=== PATIENT | male | born 1950 | race Caucasian/White ===

== ENCOUNTER 2016-09-16 18:11 | Inpatient (IN) | payer MEDICARE, OTHER ==
[~2016-09-16] VITALS: Ht 167.6 cm; Wt 96.0 kg
[~2016-09-16 18:11] MED LIST: ALPR0.254 PO; ASPI-664 PO; CARV25TA79 PO; CYAN100 PO; CYAN100T PO; DOCU-144 PO; ESOM40CA PO; FER325 PO; FURO40TA4 PO; HYDR-902 PO; HYDR28.39 RC; NIFE30TA7 PO; NIT4 SL; POTA10TA97 PO; PROP40TA4 PO; SITA1TAB5 PO; SS SC; TAMS-14 PO
[2016-09-16] MEDS ORDERED: ONDANSETRON 4 MG INJ IV STA (20:04)
[2016-09-16] MEDS ORDERED: FAMOTIDINE 20 MG INJ IV STA (20:04)
[2016-09-16] MEDS ORDERED: morphine 4 MG/ML VIAL IV STA (20:04)
[2016-09-16] MEDS ORDERED: SOD CHLORIDE 0.9% 1,000 ML IV STA (20:04)
[2016-09-16] MEDS ORDERED: CARV12.579 PO (20:38)
[2016-09-16] MEDS ORDERED: POTA20TA15 PO (20:40)
[2016-09-16] MEDS ORDERED: LANT3I SC (20:41)
[2016-09-16] MEDS ORDERED: DULO30CA47 PO (20:42)
[2016-09-16] MEDS ORDERED: HYDR-3672 PO (20:42)
[2016-09-16] MEDS ORDERED: SITA1TAB5 PO (20:42)
[2016-09-16] MEDS ORDERED: ATOR10TA65 PO (20:43)
[2016-09-16] MEDS ORDERED: GABA100C14 PO (20:43)
--- NOTE | 2016-09-16 20:55 | RADRPT ---
PROCEDURE: US right upper quadrant CLINICAL INDICATION: Abdominal pain TECHNIQUE: Multiple real-time images were acquired of the patient's right upper abdomen utilizing a high resolution transducer. COMPARISON: CT abdomen 02/19/2016 FINDINGS: Liver: Nodular contour as seen previously concerning for cirrhosis with increased echogenicity and size. There is no evidence of mass or ductal dilatation. Normal directional blood flow is seen with in the patent main portal vein. The maximum dimension estimated at 20.7 cm consistent with hepatomeg rosette . Gallbladder: Normal. No wall thickening. No sonographic Thomas's sign is reported. Common bile duct: Normal; 5.6 mm. There is no evidence for choledocholithiasis. Right Kidney: Normal; maximum length measured at approximately 11.1 cm. Pancreas: Visualized portions are normal. The tail is partially obscured by bowel gas. RPTAT:HJJR IMPRESSION: 1. Nodular contour to the liver consistent with cirrhosis with hepatomegaly, findings stable compar ed to the CT of 02/19/2016. 2. Unremarkable gallbladder. Physician Musa Date Time Electronically viewed and signed by Physician Musa on 09/16/2016 20:54 JR/
[2016-09-16 21:04] LABS: ADD SCAN DIFF NO
[2016-09-16 21:07] LABS: BASOPHILS % 0.3 % (0.0-2.0); EOSINOPHILS # 0.2 10^3/ul (0.0-0.5); EOSINOPHILS % 2.9 % (0.0-7.0); HEMATOCRIT 37.3 % (42.0-52.0); HEMOGLOBIN 12.8 g/dl (14.0-18.0); LYMPHOCYTES # 2.4 10^3/ul (0.8-2.9); LYMPHOCYTES % 38.8 % (15.0-51.0); MEAN CORPUSCULAR HEMOGLOBIN 28.1 pg (29.0-33.0); MEAN CORPUSCULAR HGB CONC 34.3 g/dl (32.0-37.0); MEAN CORPUSCULAR VOLUME 81.8 fl (82.0-101.0); MEAN PLATELET VOLUME 10.8 fl (7.4-10.4); MONOCYTE # 0.5 10^3/ul (0.3-0.9); MONOCYTES % 7.3 % (0.0-11.0); NEUTROPHIL # 3.1 10^3/ul (1.6-7.5); NEUTROPHILS % 50.4 % (39.0-77.0); PLATELET COUNT 149 10^3/UL (140-415); RED BLOOD COUNT 4.56 10^6/ul (4.70-6.10); RED CELL DISTRIBUTION WIDTH 13.5 % (11.5-14.5); WHITE BLOOD COUNT 6.1 10^3/ul (4.8-10.8)
[2016-09-16 21:18] LABS: ALBUMIN 4.2 g/dl (3.3-4.9)
[2016-09-16 21:19] LABS: ADD UMIC YES; URINE BILIRUBIN (Dip) NEGATIVE (NEGATIVE); URINE BLOOD (Dip) NEGATIVE (NEGATIVE); URINE COLOR LT. YELLOW (YELLOW); URINE KETONES (Dip) NEGATIVE (NEGATIVE); URINE LEUKOCYTE ESTERASE (Dip) NEGATIVE (NEGATIVE); URINE NITRITE (Dip) NEGATIVE (NEGATIVE); URINE TOTAL PROTEIN (Dip) 2+ (NEGATIVE); URINE UROBILINOGEN (Dip) 0.2 E.U./dL (0.1-1.0)
[2016-09-16 21:20] LABS: ALBUMIN/GLOBULIN RATIO 1.02; BILIRUBIN,INDIRECT 0.6 mg/dl (0-1.1); BILIRUBIN,TOTAL 0.6 mg/dl (0.2-1.3); CREATININE 1.14 mg/dl (0.61-1.24); POTASSIUM 2.6 mmol/L (3.5-5.1); TOTAL PROTEIN 8.3 g/dl (6.1-8.1)
[2016-09-16 21:21] LABS: CALCIUM 9.1 mg/dl (8.4-10.2)
[2016-09-16] MEDS ORDERED: POTASSIUM CHLORIDE (SR) 20 MEQ TAB PO ONE (21:29)
[2016-09-16 21:32] LABS: TROPONIN-I 0.012 ng/ml (0.00-0.12)
[2016-09-16 21:37] LABS: SQUAMOUS EPITHELIAL CELL,UR RARE; URINE RBCS NONE SEEN /HPF (0)
[2016-09-16] MEDS ORDERED: ACETAMINOPHEN 325 MG TAB PO ONE (22:00)
--- NOTE | 2016-09-16 22:58 | RADRPT ---
PROCEDURE: CT abdomen and pelvis without contrast. CLINICAL INDICATION: Abdominal pain. TECHNIQUE: CT scan of the abdomen and pelvis without contrast was performed on a multislice CT [facility] utilizing axial imaging from the lung bases through the pubis symphysis. The patient was scann ed without intravenous contrast. Sagittal and coronal reformatted images were made. The CTDIvol is 20.72 mGy and the DLP is 1226.56 mGycm. One of the following 3 dose reduction techniques were used during this CT examination: automated exp osure control; adjustment of the mA and /or kV according to patient size; or use of iterative recons truciton technique. COMPARISON: CT abdomen pelvis 02/19/2016 and MRI dated 02/23/2016 FINDINGS: The lung bases are clear. The visualized heart size demonstrates mild cardiomegaly and vascular ran cifications of the thoracic aorta and coronary arteries. No pericardial or pleural effusion is pres ent. Again demonstrated is a an enlarged liver measuring approximately 23 cm in cranial caudal dimensions . Heterogeneous liver is noted with a nodular serosal surface and contour. This compatible with ci rrhosis. Although study is limited without intravenous contrast the portal vein appears normal in c aliber. The visualized spleen is enlarged and measures 14.5 cm in cranial caudal dimensions. The v isualized pancreas is normal. The varices are present in the gastrohepatic region, distal esophagea l and the gastroduodenal regions. The bilateral adrenal glands demonstrate a 1.6 cm AP by 2 cm in transverse dimension adrenal nodule compatible with adrenal adenoma on prior MRI. The left adrenal gland is normal. The bilateral kidne ys are normal and symmetric. No evidence for nephroureterolithiasis or hydroureteronephrosis is pre sent. A left upper pole 1.6 cm renal cortical cyst is unchanged. The visualized bowel is nonobstructive. No evidence for diverticulosis, diverticulitis, some free The visualized urinary bladder is normal. Mild prostatic enlargement is present with prostatic calc ifications. No pelvic mass, lymphadenopathy, or free fluid is seen. There is no evidence of free a ir. No aneurysmal dilatation of the aorta is evident. Surgical anastomoses is again noted at the an orectal junction. Small bilateral fat containing inguinal hernias are unchanged. The surrounding osseous structures are remarkable for generalized osteopenia is present. Degenerati ve changes are present of the bilateral sacroiliac joints and degenerative spondylosis is noted of t he imaged spine.. Penile implants are noted. IMPRESSION: 1. Mild cardiomegaly and atherosclerotic vascular disease 2. Cirrhosis and portal hypertension with splenomegaly and varices as noted above. 3. No evidence for ascites or pneumoperitoneum 4. Stable right adrenal adenoma 1.6 cm AP by 2 cm in transverse dimensions. 5. Stable left upper pole renal cortical cysts 6. Surgical anastomoses at the anorectal junction, mild prostatic enlargement and penile implants. RPTAT: HDC .Josy Reed MD, MD Date Time Electronically viewed and signed by .Josy Reed MD, MD on 09/16/2016 22:58 .C/
[2016-09-16] MEDS ORDERED: POTASSIUM CHLORIDE 250 ML IVPB ONE (23:00)
[2016-09-16] MEDS ORDERED: MAGNESIUM SULFATE 2 GM/50 ML 50 ML IVPB ONE (23:00)
--- NOTE | 2016-09-16 23:27 | ERA ---
ER Documentation Chief Complaint Date/Time DATE: 09/16/16 TIME: 23:23 Chief Complaint ABD PAIN AND VOMITING AND DIZZINESS FOR THE PAST FEW DAYS. HPI This 66-year-old male presents to the emergency room for evaluation of abdominal pain, nausea, vomiting and dizziness for the past 3 days. According to this patient's patient has had these symptoms for 3 days and denies any radiation of the pain. He states that he is feeling weak and came to the emergency room for further evaluation. He denies any aggravating or relieving factors for his pain ROS All systems reviewed and are negative except as per history of present illness. Medications Home Meds Reported Medications Gabapentin* (Gabapentin*) 100 Mg Capsule, 100 MG PO TID, #90 CAP 09/16/16 Atorvastatin Calcium (Atorvastatin Calcium) 10 Mg Tablet, 10 MG PO QHS, #30 TAB 09/16/16 Duloxetine Hcl* (Duloxetine Hcl*) 30 Mg Capsule.dr, 30 MG PO DAILY, #30 CAP 09/16/16 Hydralazine Hcl* (Hydralazine Hcl*) 50 Mg Tab, 50 MG PO Q6H Y for ELEVATED BLOOD PRESSURE, #60 TAB 09/16/16 Sitagliptin Phos/Metformin HCl (Janumet 50-1,000 mg Tablet) 1 Each Tablet, 2 EACH PO DAILY, TAB 09/16/16 Insulin Glargine* (Lantus*) 100 Unit/Ml Soln, 8 UNIT SC QHS, #1 VIAL 09/16/16 Potassium Chloride* (K-Dur*) 20 Meq Tab.prt.sr, 20 MEQ PO BID, TAB.SA 09/16/16 Carvedilol* (Carvedilol*) 12.5 Mg Tablet, 12.5 MG PO BID, #60 TAB 09/16/16 Aspirin* (Aspirin* EC) 81 Mg Tablet.dr, 81 MG PO DAILY, TAB 03/18/15 Esomeprazole Mag Trihydrate (Nexium) 40 Mg Capsule.dr, 40 MG PO DAILY, CAP 03/18/15 Discontinued Reported Medications Sitagliptin Phos/Metformin HCl (Janumet 50-1,000 mg Tablet) 1 Each Tablet, 1 EACH PO DAILY, TAB 02/21/16 Nitroglycerin (Nitrostat) 0.4 Mg Subl, 0.4 MG SL Q5MIN Y for CHEST PAIN, BOTTLE 02/21/16 Hydrocortisone (PROCTOSOL-HC) 28.35 Gm Cream..g., 28.35 GM RC BID 02/21/16 Alprazolam (Xanax) 0.25 Mg Tab, 0.5 MG PO DAILY, TAB 02/21/16 Potassium Chloride (Klor-Con) 10 Meq Tablet.sa, 20 MEQ PO BID, TAB.SA 02/21/16 Cyanocobalamin (Vitamin B12) 100 Mcg Tab, 100 MCG PO DAILY, TAB 02/21/16 Nifedipine (Nifedical Xl) 30 Mg Tab.er.24, 30 MG PO DAILY, TAB 02/21/16 Furosemide (Lasix) 40 Mg Tab, 40 MG PO DAILY, TAB 02/21/16 Carvedilol* (Carvedilol*) 25 Mg Tablet, 25 MG PO BID, #60 TAB 02/21/16 Insulin Human Regular (Novolin-R U-100) 100 Unit/Ml Soln, 8 UNITS SC AC DINNER, EA 02/21/16 Insulin Human Regular (Novolin-R U-100) 100 Unit/Ml Soln, 8 UNITS SC AC BREAKFAST, EA 02/21/16 Cyanocobalamin* (Vitamin B12*) 100 Mcg Tab, 100 MCG PO DAILY, TAB 02/21/16 Nitroglycerin* (Nitrostat*) 0.4 Mg Tab.subl, 0.4 MG SL Q5MIN Y for CHEST PAIN, BOTTLE 03/18/15 Docusate Sodium* (Colace*) 100 Mg Capsule, 100 MG PO Q24H, CAP 03/18/15 Propranolol Hcl* (Propranolol Hcl*) 40 Mg Tablet, 40 MG PO BID, TAB 03/18/15 Ferrous Sulfate* (Ferrous Sulfate*) 325 Mg Tabec, 325 MG PO DAILY, TAB 03/18/15 Tamsulosin Hcl* (Flomax*) 0.4 Mg Cap.er.24h, 0.4 MG PO HS, CAP 03/18/15 Discontinued Scripts Hydrocodone/Acetaminophen ([place] 10-325 Tablet) 1 Each Tablet, 1 TAB PO Q6H Y for PAIN, #20 TAB Prov:JEFFERY VICTORIA 02/01/16 Allergies Allergies: Coded Allergies: No Known Drug Allergy (Verified Allergy, Unknown, 09/16/16) PMhx/Soc History of Surgery: Yes (metal harley ra, prostrate removed) Anesthesia Reaction: No Hx Neurological Disorder: No Hx Respiratory Disorders: No Hx Cardiac Disorders: Yes Hx Psychiatric Problems: No Hx Miscellaneous Medical Probl: Yes (hyperlipedemia) Hx Alcohol Use: No Hx Substance Use: No Hx Tobacco Use: No Smoking Status: Never smoker Physical Exam Vitals Vital Signs Date Time Temp Pulse Resp B/P Pulse Ox O2 Delivery O2 Flow Rate FiO2 09/16/16 21:10 98.0 82 18 180/88 100 Room Air 09/16/16 18:14 97.8 61 20 207/102 97 Physical Exam INITIAL VITAL SIGNS: Reviewed by me GENERAL: The patient is well developed and appropriate for usual state of health in no apparent distress HEENT: Pupils equal, round, and reactive to light. EOMI. There is no scleral icterus. NECK: C-spine is soft and supple, there is no meningismus. There is no cervical lymphadenopathy. LUNGS: Clear to auscultation bilaterally. There are no rales, wheezes or rhonchi. HEART: Regular rate and rhythm, no murmurs, clicks, rubs or gallops. ABDOMEN: Soft, non-tender, non-distended. There are bowel sounds in all four quadrants. No rebound or guarding. EXTREMITIES: There is no peripheral cyanosis or edema. No focal swelling or erythema. NEUROLOGICAL: The patient moves all four extremities with 5/5 strength. Cranial nerves II - XII are intact. Normal gait. Alert and oriented SKIN: There is no apparent rash or petechiae. HEME/LYMPHATIC: There is no evidence of excessive bruising or lymphedema. PSYCHIATRIC: The patient does not appear anxious or depressed. Result Diagram: 09/16/16204709/16/162047 Results 24 hrs Laboratory Tests Test 09/16/16 18:19 09/16/16 20:48 09/16/16 20:50 Bedside Glucose 268mg/dL White Blood Count 6.110^3/ul Red Blood Count 4.5610^6/ul Hemoglobin 12.8g/dl Hematocrit 37.3% Mean Corpuscular Volume 81.8fl Mean Corpuscular Hemoglobin 28.1pg Mean Corpuscular Hemoglobin Concent 34.3g/dl Red Cell Distribution Width 13.5% Platelet Count 75820^3/UL Mean Platelet Volume 10.8fl Neutrophils % 50.4% Lymphocytes % 38.8% Monocytes % 7.3% Eosinophils % 2.9% Basophils % 0.3% Nucleated Red Blood Cells % 0.0/100WBC Neutrophils # 3.110^3/ul Lymphocytes # 2.410^3/ul Monocytes # 0.510^3/ul Eosinophils # 0.210^3/ul Basophils # 0.010^3/ul Nucleated Red Blood Cells # 0.010^3/ul Sodium Level 141mmol/L Potassium Level 2.6mmol/L Chloride Level 95mmol/L Carbon Dioxide Level 31mmol/L Anion Gap 18 Blood Urea Nitrogen 18mg/dl Creatinine 1.14mg/dl Glucose Level 260mg/dl Calcium Level 9.1mg/dl Total Bilirubin 0.6mg/dl Direct Bilirubin 0.00mg/dl Indirect Bilirubin 0.6mg/dl Aspartate Amino Transf (AST/SGOT) 34IU/L Alanine Aminotransferase (ALT/SGPT) 34IU/L Alkaline Phosphatase 134IU/L Troponin I 0.012ng/ml Total Protein 8.3g/dl Albumin 4.2g/dl Globulin 4.10g/dl Albumin/Globulin Ratio 1.02 Lipase 133U/L Urine Color LT. YELLOW Urine Clarity CLEAR Urine pH 7.0 Urine Specific [place] 1.015 Urine Ketones NEGATIVE Urine Nitrite NEGATIVE Urine Bilirubin NEGATIVE Urine Urobilinogen 0.2 E.U./dL Urine Leukocyte Esterase NEGATIVE Urine Microscopic RBC NONE SEEN/HPF Urine Microscopic WBC NONE SEEN/HPF Urine Squamous Epithelial Cells RARE Urine Hemoglobin NEGATIVE Urine Glucose 0.25%% Urine Total Protein 2+ Current Medications Medications (Trade) Dose Ordered Sig/Earnestine Route PRN Reason Start Time Stop Time Status Last Admin Dose Admin Sodium Chloride (NS) 1,000 ml @ 1,000 mls/hr Q1H STAT IV 09/16/16 20:04 09/16/16 21:03 DC 09/16/16 20:35 Morphine Sulfate (morphine) 4 mg ONCE STAT IV 09/16/16 20:04 09/16/16 20:05 DC 09/16/16 20:35 Ondansetron HCl (Zofran Inj) 4 mg ONCE STAT IV 09/16/16 20:04 09/16/16 20:05 DC 09/16/16 20:35 Famotidine (Pepcid Iv) 20 mg ONCE STAT IV 09/16/16 20:04 09/16/16 20:05 DC 09/16/16 20:35 Potassium Chloride (Klor-Con 20) 40 meq ONCE ONCE PO 09/16/16 21:29 09/16/16 21:30 DC 09/16/16 22:51 Acetaminophen 650 mg 650 mg ONCE ONCE PO 09/16/16 22:00 09/16/16 22:01 DC 09/16/16 22:30 Magnesium Sulfate 50 ml @ 25 mls/hr ONCE ONCE IVPB 09/16/16 23:00 09/17/16 00:59 Potassium Chloride (KCl 40 MEQ/250 ML NS) 250 ml @ 62.5 mls/hr ONCE ONCE IVPB 09/16/16 23:00 09/17/16 02:59 Procedures/MDM EKG: Rate/Rhythm: [Normal Sinus Rhythm] QRS, ST, T-waves: [No changes consistent w/ acute ischemia] Impression: [No evidence of ischemia or arrhythmia] CT abdomen pelvis without: 1. Mild cardiomegaly and atherosclerotic vascular disease 2. Cirrhosis and portal hypertension with splenomegaly and varices as noted above. 3. No evidence for ascites or pneumoperitoneum 4. Stable right adrenal adenoma 1.6 cm AP by 2 cm in transverse dimensions. 5. Stable left upper pole renal cortical cysts 6. Surgical anastomoses at the anorectal junction, mild prostatic enlargement and penile implants. Gallbladder ultrasound: 1. Nodular contour to the liver consistent with cirrhosis with hepatomegaly, findings stable compared to the CT of 02/19/2016. 2. Unremarkable gallbladder. This 66-year-old male presents to the ER for evaluation of abdominal pain. This patient did have positive Thomas sign on my examination. Lab work was obtained including a gallbladder ultrasound which was insignificant. I did order a CT of the abdomen pelvis and does show a liver cirrhosis with no acute intra-abdominal findings. Lab work was also obtained which shows a potassium of 2.6. This patient has no EKG changes. He was given 40 mEq of potassium by mouth, 40 mEq of potassium IV, 2 g of magnesium IV, and this patient will be placed in for admission to his primary care physician at this time. He will be placed on telemetry floor. Departure Diagnosis: Primary Impression: Hypokalemia Additional Impressions: Liver cirrhosis Microcytic anemia Condition: Stable KEYA GAMEZ DO Sep 16, 2016 23:26
[2016-09-17] VITALS (13 sets, daily range): BP systolic 107–196; BP diastolic 61–107; PULSE 54–69; RESP 16–20; TEMP 98.3; Ht 167.6 cm; Wt 96.0 kg
[2016-09-17] MEDS ORDERED: GLUCOSE GEL 15 GRAM TUBE BUCCAL PRN (07:00)
[2016-09-17] MEDS ORDERED: NACL 0.9% 3 ML SYG IV SCH (07:00)
[2016-09-17] MEDS ORDERED: GLUCOSE GEL 15 GRAM TUBE PO PRN ×2 (07:00)
[2016-09-17] MEDS ORDERED: GLUCAGON 1 MG INJ IM PRN (07:00)
[2016-09-17] MEDS ORDERED: DEXTROSE 50% 50 ML SYRINGE IV PRN ×2 (07:00)
[2016-09-17] MEDS: hydrALAzine 20 MG INJ IV PRN (07:38)
[2016-09-17] MEDS: DEXTROSE 5%-0.45% NACL 1,000 ML IV SCH ×2 (07:39→15:44)
[2016-09-17] MEDS: ACETAMINOPHEN 325 MG TAB PO PRN ×2 (07:52→18:03)
[2016-09-17 07:54] LABS: ADD SCAN DIFF NO
[2016-09-17 07:56] LABS: BASOPHILS % 0.5 % (0.0-2.0); EOSINOPHILS # 0.2 10^3/ul (0.0-0.5); HEMATOCRIT 37.3 % (42.0-52.0); HEMOGLOBIN 12.8 g/dl (14.0-18.0); LYMPHOCYTES # 2.2 10^3/ul (0.8-2.9); MEAN CORPUSCULAR HEMOGLOBIN 28.4 pg (29.0-33.0); MEAN CORPUSCULAR HGB CONC 34.3 g/dl (32.0-37.0); MEAN CORPUSCULAR VOLUME 82.7 fl (82.0-101.0); MEAN PLATELET VOLUME 10.1 fl (7.4-10.4); MONOCYTE # 0.4 10^3/ul (0.3-0.9); MONOCYTES % 7.5 % (0.0-11.0); NEUTROPHIL # 2.9 10^3/ul (1.6-7.5); NEUTROPHILS % 49.7 % (39.0-77.0); PLATELET COUNT 144 10^3/UL (140-415); RED BLOOD COUNT 4.51 10^6/ul (4.70-6.10); RED CELL DISTRIBUTION WIDTH 13.7 % (11.5-14.5); WHITE BLOOD COUNT 5.8 10^3/ul (4.8-10.8)
[2016-09-17 08:15] LABS: ALBUMIN 3.6 g/dl (3.3-4.9)
[2016-09-17 08:16] LABS: POTASSIUM 3.2 mmol/L (3.5-5.1)
[2016-09-17 08:18] LABS: ALBUMIN/GLOBULIN RATIO 0.92; BILIRUBIN,INDIRECT 0.5 mg/dl (0-1.1); BILIRUBIN,TOTAL 0.5 mg/dl (0.2-1.3); CREATININE 1.09 mg/dl (0.61-1.24); TOTAL PROTEIN 7.5 g/dl (6.1-8.1)
[2016-09-17 08:19] LABS: CALCIUM 8.4 mg/dl (8.4-10.2)
[2016-09-17] MEDS: DULOXETINE 30 MG CAP DR PO SCH (08:33)
[2016-09-17] MEDS: INSULIN ASPART [NOVOLOG] 3 ML PEN SC SCH ×3 (08:33→17:34)
[2016-09-17] MEDS: POTASSIUM CHLORIDE (SR) 20 MEQ TAB PO SCH ×2 (08:33→21:39)
[2016-09-17] MEDS: ASPIRIN (EC) 81 MG TAB PO SCH (08:33)
[2016-09-17] MEDS: GABAPENTIN 100 MG CAP PO SCH ×3 (08:34→21:37)
--- NOTE | 2016-09-17 09:07 | HP ---
Date/Time of Note Date/Time of Note DATE: 09/17/16 TIME: 08:47 Assessment/Plan VTE Prophylaxis VTE Prophylaxis Intervention: SCD's Lines/Catheters IV Catheter Type (from Nrs): Peripheral IV Urinary Cath still in place: No Assessment/Plan Assessment/Plan IMPRESSION 1. Acute on Chronic RUQ abd pain 2. Hypokalemia 3. Hypertensive Urgency 4. Cirrhosis with portal HTN and varices 5. Hx of CAD 6. DM 7. Gastric Ulcer/Gastritis PLAN - pt's abd pain is chronic and imaging including CT a/p, previous Abd MRI and EGD without definitive diagnosis. Likely pt's pain is related to his cirrhosis with portal HTN or referred pain from his gastric ulcer - Will provide pain meds as needed. - Cont PPI - Insulin for DM - Adjust BP meds for better BP control - Resume hoe meds when no longer NPO HPI/ROS Admit Date/Time Admit Date/Time Sep 17, 2016 at 01:56 Hx of Present Illness This 66-year-old male with hx of HTN, DM, CAD, DL, Cirrhosis who presented to the emergency room for evaluation of abdominal pain, nausea, vomiting and dizziness. According to this patient's patient has had mainly RUQ pain for last 8 months now. His vomiting is intermittent with emesis described as "small water". He has been feeling dizzy/lightheaded for last one week. He is a pt of Dr. Anaya and said he was seen in clinic 2 days ago and was given pain meds for his abd pain. He was admitted here in February of last year for abd pain. At that time, Abd MRI showed cirrhosis and EGD showed gastritis and superficial ulcers In ER this time, he had CT abd/pelvis and RUQ u/s with finding of cirrhosis with portal HTN and varices. Also noted on CT scan is Surgical anastomoses at the anorectal junction, mild prostatic enlargement and penile implants. Initial BP was 207/102. Labs showed K+ of 2.6 and glu of 268. . PMH/Family/Social Social History Smoking Status: Former smoker Exam/Review of Systems Vital Signs Vitals Vital Signs Date Time Temp Pulse Resp B/P Pulse Ox O2 Delivery O2 Flow Rate FiO2 09/17/16 08:07 97.6 65 18 151/73 99 09/17/16 05:29 Room Air Intake and Output 09/16/16 09/16/16 09/17/16 15:00 23:00 07:00 Output Total 350 ml Balance -350 ml Exam Constitutional: alert, oriented, well developed Head: atraumatic, normocephalic Eyes: EOMI, PERRL Neck: non-tender, supple Respiratory: clear to auscultation, normal air movement Cardiovascular: nl pulses, regular rate and rhythm Gastrointestinal: soft, tender (tenderness in RUQ with gurading) Extremities: normal pulses Labs Result Diagram: 09/17/1672909/17/16729 Medications Medications Current Medications Dextrose/Sodium Chloride (D5-1/2ns) 1,000 ml @ 120 mls/hr Q8H20M IV Last administered on 09/17/16 07:39; Admin Dose 120 MLS/HR; Start 09/17/16 at 06:47 Acetaminophen (Tylenol Tab) 650 mg Q6H PRN PO PAIN LEVEL 1-3 OR FEVER Last administered on 09/17/16 07:52; Admin Dose 650 MG; Start 09/17/16 at 07:00 Morphine Sulfate (morphine) 2 mg Q4H PRN IV PAIN LEVEL 7-10; Start 09/17/16 at 07:00 Aspirin (Halfprin) 81 mg DAILY PO Last administered on 09/17/16 08:33; Admin Dose 81 MG; Start 09/17/16 at 09:00 Atorvastatin Calcium (Lipitor) 10 mg QHS PO ; Start 09/17/16 at 21:00 Carvedilol (Coreg) 12.5 mg BID PO Last administered on 09/17/16 08:34; Admin Dose 12.5 MG; Start 09/17/16 at 09:00 Duloxetine HCl (Cymbalta) 30 mg DAILY PO Last administered on 09/17/16 08:33; Admin Dose 30 MG; Start 09/17/16 at 09:00 Gabapentin (Neurontin) 100 mg TID PO Last administered on 09/17/16 08:34; Admin Dose 100 MG; Start 09/17/16 at 09:00 Insulin Glargine (Lantus) 8 unit QHS SC ; Start 09/17/16 at 21:00 Potassium Chloride (Klor-Con 20) 20 meq BID PO Last administered on 09/17/16 08:33; Admin Dose 20 MEQ; Start 09/17/16 at 09:00 Pantoprazole (Protonix Tab) 40 mg DAILY@06 PO ; Start 09/18/16 at 06:00 Hydralazine HCl (Apresoline) 10 mg Q4H PRN IV SBP > 160 Last administered on 07:38; Admin Dose 10 MG; Start 09/17/16 at 07:00 Insulin Aspart (Novolog Insulin Pen) NOVOLOG *MODERATE* ALGORI... Q6 SC Last administered on 09/17/16 08:33; Admin Dose 4 UNIT; Start 09/17/16 at 08:00 Miscellaneous Information 1 ea NOTE XX ; Start 09/17/16 at 07:00 Glucose (Glutose) 15 gm Q15M PRN PO DECREASED GLUCOSE; Start 09/17/16 at 07:00 Glucose (Glutose) 22.5 gm Q15M PRN PO DECREASED GLUCOSE; Start 09/17/16 at 07: 00 Dextrose (D50w Syringe) 25 ml Q15M PRN IV DECREASED GLUCOSE; Start 09/17/16 at 07:00 Dextrose (D50w Syringe) 50 ml Q15M PRN IV DECREASED GLUCOSE; Start 09/17/16 at 07:00 Glucagon (Glucagen) 1 mg Q15M PRN IM DECREASED GLUCOSE; Start 09/17/16 at 07:00 Glucose (Glutose) 15 gm Q15M PRN BUCCAL DECREASED GLUCOSE; Start 09/17/16 at 07 :00 JEFFERY ARANA MD Sep 17, 2016 08:57
[2016-09-17] MEDS ORDERED: POTASSIUM CHLORIDE (SR) 20 MEQ TAB PO STA (13:43)
--- NOTE | 2016-09-17 14:05 | CONS ---
Date/Time of Note Date/Time of Note DATE: 09/17/16 TIME: 14:02 Assessment/Plan Assessment/Plan Additional Assessment/Plan Abdominal pain/nausea/vomiting Evaluate for pancreatitis versus PUD versus other etiology CT Abdomen 09-16-16: * 1. Mild cardiomegaly and atherosclerotic vascular disease * 2. Cirrhosis and portal hypertension with splenomegaly and varices as noted above. * 3. No evidence for ascites or pneumoperitoneum * 4. Stable right adrenal adenoma 1.6 cm AP by 2 cm in transverse dimensions. * 5. Stable left upper pole renal cortical cysts * 6. Surgical anastomoses at the anorectal junction, mild prostatic enlargement and penile implants. Status post ERCP 02/24/16: * 1. Minor ampulla much more prominent with a subendothelial lesion, 1.5 cm in diameter. * 2. Normal major ampulla. * 3. Crum gastritis. * 4. Two superficial ulcers. * 5. On side view scope, we did not see any significant varicose vein Previous notes possible ultrasound-guided FNA of lesion and ampulla, patient does not recall if completed Rule out choledocholithiasis Gallbladder ultrasound * 1. Nodular contour to the liver consistent with cirrhosis with hepatomegaly, findings stable compared to the CT of 02/19/2016. * 2. Unremarkable gallbladder. IVF Hydration Nausea and pain control Start PPI twice daily NPO till pain free Review MRCP May require endoscopic evaluation Monitor labs Stool OB, if positive may need EGD for further evaluation Liver cirrhosis Review acute hepatitis panel Type 2 diabetes Management per Primary Accu-Cheks per protocol Hypertension Management per Primary Continue home medication Further recommendations depend on clinical course Patient seen in collaboration with Dr. Franks Consultation Date/Type/Reason Admit Date/Time Sep 17, 2016 at 01:56 Reason for Consultation Abdominal, nausea, vomiting Hx of Present Illness Mr. Colin Cloud is a 66-year-old male that presented to the ED yesterday secondary to worsening abdominal pain, nausea, vomiting 3 days. Patient denies previous episode. Patient denies melena stools, diarrhea, new medication , sick contacts, travel outside [place]. Patient has past medical history for liver cirrhosis, portal hypertension, type 2 diabetes, degenerative disc disease, hypertension, and prior hospitalization for pancreatitis. At bedside patient reports abdominal pain with movement and palpation. Patient started trial of clear liquids and reports worsening abdominal pain. Will restart n.p.o. status. CT abdomen notes: Cirrhosis and portal hypertension with splenomegaly and varices as noted above. No evidence for ascites or pneumoperitoneum. Patient denies alcohol abuse. Patient completed ERCP 02/23/16 with and recommendation for S with possible FNA of this submucosal lesion within ampulla however patient unsure of procedure completed. Will complete repeat MRCP and ordered labs. Past Medical History Medical History: diabetes, hypertension, other (Liver cirrhosis) Social History Smoking Status: Former smoker Exam/Review of Systems Vital Signs Vitals Vital Signs Date Time Temp Pulse Resp B/P Pulse Ox O2 Delivery O2 Flow Rate FiO2 09/17/16 12:04 62 09/17/16 11:47 97.5 18 107/61 90 09/17/16 05:29 Room Air Intake and Output 09/16/16 09/16/16 09/17/16 14:59 22:59 06:59 Output Total 350 ml Balance -350 ml Exam Constitutional: alert, oriented, well developed Psych: nl mood/affect Head: normocephalic Eyes: EOMI, nl conjunctiva, nl lids ENMT: nl external ears & nose, nl lips & teeth, nl nasal mucosa & septum Respiratory: clear to auscultation, normal air movement Cardiovascular: regular rate and rhythm Gastrointestinal: soft, exquisite right upper quadrant tenderness Musculoskeletal: nl extremities to inspection Neurological: COIN PURSE FRAMER II-XII intact Results Result Diagram: 09/17/16 0730 09/17/16 0730 Results 24 hrs Laboratory Tests Test 09/16/16 18:19 09/16/16 20:48 09/16/16 20:50 09/17/16 07:30 Bedside Glucose 268 H White Blood Count 6.1 # 5.8 Red Blood Count 4.56 L 4.51 L Hemoglobin 12.8 L 12.8 L Hematocrit 37.3 L 37.3 L Mean Corpuscular Volume 81.8 L 82.7 Mean Corpuscular Hemoglobin 28.1 L 28.4 L Mean Corpuscular Hemoglobin Concent 34.3 34.3 Red Cell Distribution Width 13.5 13.7 Platelet Count 149 144 Mean Platelet Volume 10.8 H 10.1 Neutrophils % 50.4 49.7 Lymphocytes % 38.8 38.0 Monocytes % 7.3 7.5 Eosinophils % 2.9 4.0 Basophils % 0.3 0.5 Nucleated Red Blood Cells % 0.0 0.0 Neutrophils # 3.1 2.9 Lymphocytes # 2.4 2.2 Monocytes # 0.5 0.4 Eosinophils # 0.2 0.2 Basophils # 0.0 0.0 Nucleated Red Blood Cells # 0.0 0.0 Sodium Level 141 143 Potassium Level 2.6 *L 3.2 L Chloride Level 95 L 101 Carbon Dioxide Level 31 31 Anion Gap 18 H 14 Blood Urea Nitrogen 18 15 Creatinine 1.14 1.09 Glucose Level 260 H 215 Calcium Level 9.1 8.4 Total Bilirubin 0.6 0.5 Direct Bilirubin 0.00 0.00 Indirect Bilirubin 0.6 0.5 Aspartate Amino Transf (AST/SGOT) 34 29 Alanine Aminotransferase (ALT/SGPT) 34 33 Alkaline Phosphatase 134 H 92 Troponin I 0.012 Total Protein 8.3 H 7.5 Albumin 4.2 3.6 Globulin 4.10 H 3.90 H Albumin/Globulin Ratio 1.02 0.92 Lipase 133 Urine Color LT. YELLOW Urine Clarity CLEAR Urine pH 7.0 Urine Specific [place] 1.015 Urine Ketones NEGATIVE Urine Nitrite NEGATIVE Urine Bilirubin NEGATIVE Urine Urobilinogen 0.2 E.U./dL Urine Leukocyte Esterase NEGATIVE Urine Microscopic RBC NONE SEEN Urine Microscopic WBC NONE SEEN Urine Squamous Epithelial Cells RARE Urine Hemoglobin NEGATIVE Urine Glucose 0.25% H Urine Total Protein 2+ H Test 09/17/16 08:30 09/17/16 12:10 Bedside Glucose 208 246 H Medications Medications Current Medications Dextrose/Sodium Chloride (D5-1/2ns) 1,000 ml @ 60 mls/hr [id number] IV Last administered on 09/17/16 07:39; Admin Dose 120 MLS/HR; Start 09/17/16 at 06:47 Acetaminophen (Tylenol Tab) 650 mg Q6H PRN PO PAIN LEVEL 1-3 OR FEVER Last administered on 09/17/16 07:52; Admin Dose 650 MG; Start 09/17/16 at 07:00 Morphine Sulfate (morphine) 2 mg Q4H PRN IV PAIN LEVEL 7-10; Start 09/17/16 at 07:00 Aspirin (Halfprin) 81 mg DAILY PO Last administered on 09/17/16 08:33; Admin Dose 81 MG; Start 09/17/16 at 09:00 Atorvastatin Calcium (Lipitor) 10 mg QHS PO ; Start 09/17/16 at 21:00 Carvedilol (Coreg) 12.5 mg BID PO Last administered on 09/17/16 08:34; Admin Dose 12.5 MG; Start 09/17/16 at 09:00 Duloxetine HCl (Cymbalta) 30 mg DAILY PO Last administered on 09/17/16 08:33; Admin Dose 30 MG; Start 09/17/16 at 09:00 Gabapentin (Neurontin) 100 mg TID PO Last administered on 09/17/16 12:09; Admin Dose 100 MG; Start 09/17/16 at 09:00 Insulin Glargine (Lantus) 8 unit QHS SC ; Start 09/17/16 at 21:00 Potassium Chloride (Klor-Con 20) 20 meq BID PO Last administered on 09/17/16 08:33; Admin Dose 20 MEQ; Start 09/17/16 at 09:00 Pantoprazole (Protonix Tab) 40 mg DAILY@06 PO ; Start 09/18/16 at 06:00 Hydralazine HCl (Apresoline) 10 mg Q4H PRN IV SBP > 160 Last administered on 07:38; Admin Dose 10 MG; Start 09/17/16 at 07:00 Insulin Aspart (Novolog Insulin Pen) NOVOLOG *MODERATE* ALGORI... Q6 SC Last administered on 09/17/16 12:13; Admin Dose 6 UNIT; Start 09/17/16 at 08:00 Miscellaneous Information 1 ea NOTE XX ; Start 09/17/16 at 07:00 Glucose (Glutose) 15 gm Q15M PRN PO DECREASED GLUCOSE; Start 09/17/16 at 07:00 Glucose (Glutose) 22.5 gm Q15M PRN PO DECREASED GLUCOSE; Start 09/17/16 at 07: 00 Dextrose (D50w Syringe) 25 ml Q15M PRN IV DECREASED GLUCOSE; Start 09/17/16 at 07:00 Dextrose (D50w Syringe) 50 ml Q15M PRN IV DECREASED GLUCOSE; Start 09/17/16 at 07:00 Glucagon (Glucagen) 1 mg Q15M PRN IM DECREASED GLUCOSE; Start 09/17/16 at 07:00 Glucose (Glutose) 15 gm Q15M PRN BUCCAL DECREASED GLUCOSE; Start 09/17/16 at 07 :00 AMITA LI Sep 17, 2016 14:05 Glucose (Glutose) 22.5 gm Q15M PRN PO DECREASED GLUCOSE; Start 09/17/16 at 07: 00 Dextrose (D50w Syringe) 25 ml Q15M PRN IV DECREASED GLUCOSE; Start 09/17/16 at 07:00 Dextrose (D50w Syringe) 50 ml Q15M PRN IV DECREASED GLUCOSE; Start 09/17/16 at 07:00 Glucagon (Glucagen) 1 mg Q15M PRN IM DECREASED GLUCOSE; Start 09/17/16 at 07:00 Glucose (Glutose) 15 gm Q15M PRN BUCCAL DECREASED GLUCOSE; Start 09/17/16 at 07 :00 AMITA LI Sep 17, 2016 14:05 AMITA LI Sep 17, 2016 14:05
[2016-09-17 15:51] LABS: HAAIG REFLEX REFLEX FILED
[2016-09-17 17:02] LABS: HEPATITIS B CORE ANTIBODY NEGATIVE (NEGATIVE)
[2016-09-17] MEDS: PANTOPRAZOLE 40 MG INJ IV SCH (17:34)
[2016-09-17] MEDS: INSULIN GLARGINE [LANtus] 3 ML PEN SC SCH (21:35)
[2016-09-17] MEDS: ATORVASTATIN 10 MG TAB PO SCH (21:37)
[2016-09-17] MEDS: morphine 2 MG INJ IV PRN (21:50)
[2016-09-18] VITALS (16 sets, daily range): BP systolic 136–194; BP diastolic 72–101; PULSE 60–94; RESP 16–19
[2016-09-18] MEDS: INSULIN ASPART [NOVOLOG] 3 ML PEN SC SCH ×4 (02:00→17:39)
[2016-09-18] MEDS ORDERED: PANTOPRAZOLE (EC) 40 MG TAB PO SCH (06:00)
[2016-09-18] MEDS: PANTOPRAZOLE 40 MG INJ IV SCH ×2 (06:02→17:30)
[2016-09-18 07:36] LABS: ADD SCAN DIFF NO
[2016-09-18 07:43] LABS: BASOPHILS % 0.4 % (0.0-2.0); EOSINOPHILS # 0.2 10^3/ul (0.0-0.5); HEMATOCRIT 35.8 % (42.0-52.0); HEMOGLOBIN 11.8 g/dl (14.0-18.0); LYMPHOCYTES # 2.3 10^3/ul (0.8-2.9); LYMPHOCYTES % 45.8 % (15.0-51.0); MEAN CORPUSCULAR HEMOGLOBIN 27.8 pg (29.0-33.0); MEAN CORPUSCULAR VOLUME 84.4 fl (82.0-101.0); MEAN PLATELET VOLUME 10.7 fl (7.4-10.4); MONOCYTE # 0.4 10^3/ul (0.3-0.9); MONOCYTES % 7.6 % (0.0-11.0); NEUTROPHIL # 2.1 10^3/ul (1.6-7.5); NEUTROPHILS % 41.8 % (39.0-77.0); PLATELET COUNT 128 10^3/UL (140-415); RED BLOOD COUNT 4.24 10^6/ul (4.70-6.10); RED CELL DISTRIBUTION WIDTH 14.1 % (11.5-14.5)
[2016-09-18 07:59] LABS: ALBUMIN 3.4 g/dl (3.3-4.9); ALBUMIN/GLOBULIN RATIO 0.97; BILIRUBIN,INDIRECT 0.5 mg/dl (0-1.1); BILIRUBIN,TOTAL 0.5 mg/dl (0.2-1.3); CALCIUM 8.2 mg/dl (8.4-10.2); CHOL/HDL RATIO 5.3 RATIO; CREATININE 1.16 mg/dl (0.61-1.24); MAGNESIUM 2.1 mg/dl (1.7-2.5); POTASSIUM 3.2 mmol/L (3.5-5.1); TOTAL PROTEIN 6.9 g/dl (6.1-8.1)
[2016-09-18 08:09] LABS: AMYLASE 42 U/L (11-123)
[2016-09-18] MEDS: DEXTROSE 5%-0.45% NACL 1,000 ML IV SCH (08:09)
[2016-09-18] MEDS: DULOXETINE 30 MG CAP DR PO SCH (09:08)
[2016-09-18] MEDS: ASPIRIN (EC) 81 MG TAB PO SCH (09:08)
[2016-09-18] MEDS: GABAPENTIN 100 MG CAP PO SCH ×3 (09:08→20:23)
[2016-09-18] MEDS: POTASSIUM CHLORIDE (SR) 20 MEQ TAB PO SCH ×2 (09:08→20:24)
[2016-09-18] MEDS: morphine 2 MG INJ IV PRN ×2 (09:36→16:25)
--- NOTE | 2016-09-18 09:38 | PN ---
Date/Time of Note Date/Time of Note DATE: 09/18/16 TIME: 09:24 Assessment/Plan VTE Prophylaxis VTE Prophylaxis Intervention: SCD's Lines/Catheters IV Catheter Type (from [facility]): Saline Lock Urinary Cath still in place: No Assessment/Plan Assessment/Plan Assessment * Abdominal pain * consider Liver cirrhosis vs PUD * MRCP4? * 1. Nodular liver surface consistent with cirrhosis. * 2. Splenomegaly. * 3. Varices around the distal esophagus. * 4. Dilated common bile duct measuring 0.9 cm in diameter. No evidence of gallstones or stones in the common bile duct. * 5. Benign bilateral renal cysts. * CT abdomen /pelvis 09/17/2015 * 1. Mild cardiomegaly and atherosclerotic vascular disease 2. Cirrhosis and portal hypertension with splenomegaly and varices as noted above. 3. No evidence for ascites or pneumoperitoneum 4. Stable right adrenal adenoma 1.6 cm AP by 2 cm in transverse dimensions. 5. Stable left upper pole renal cortical cysts 6. Surgical anastomoses at the anorectal junction, mild prostatic enlargement and penile implants. * Diabetes mellitus * Hypokalemia * Hypertension Plan * EGD risks benefits explained to patient agreed with planned procedure * continue present management Subjective 24 Hr Interval Summary Free Text/Dictation * course reviewed with Nurse * patient seen and examined * right upper quadrant pain moderate * no hematemesis,nor fever * MRCP4/ * 1. Nodular liver surface consistent with cirrhosis. * 2. Splenomegaly. * 3. Varices around the distal esophagus. * 4. Dilated common bile duct measuring 0.9 cm in diameter. No evidence of gallstones or stones in the common bile duct. * 5. Benign bilateral renal cysts. Exam/Review of Systems Vital Signs Vitals Vital Signs Date Time Temp Pulse Resp B/P Pulse Ox O2 Delivery O2 Flow Rate FiO2 09/18/16 08:10 69 09/18/16 07:34 98.8 18 159/85 96 09/17/16 05:29 Room Air Intake and Output 09/17/16 09/17/16 09/18/16 15:00 23:00 07:00 Intake Total 660 ml Balance 660 ml Exam Constitutional: alert, oriented Neck: supple Respiratory: clear to auscultation, normal air movement Cardiovascular: nl pulses, regular rate and rhythm Gastrointestinal: rebound or guarding (rebound tenderness right upper quadrant) , soft, tender (right upper quadrant) Results Result Diagram: 09/18/16 0620 09/18/16 0620 Results 24 hrs Laboratory Tests Test 09/17/16 12:10 09/17/16 15:30 09/17/16 17:31 09/17/16 21:33 Bedside Glucose 246 H 219 235 H Hepatitis B Surface Antigen NEGATIVE Hepatitis B Core Total Antibody NEGATIVE Hepatitis C Antibody NEGATIVE Test 09/18/16 02:23 09/18/16 06:03 09/18/16 06:20 Bedside Glucose 162 148 White Blood Count 5.0 Red Blood Count 4.24 L Hemoglobin 11.8 L Hematocrit 35.8 L Mean Corpuscular Volume 84.4 Mean Corpuscular Hemoglobin 27.8 L Mean Corpuscular Hemoglobin Concent 33.0 Red Cell Distribution Width 14.1 Platelet Count 128 L Mean Platelet Volume 10.7 H Neutrophils % 41.8 Lymphocytes % 45.8 Monocytes % 7.6 Eosinophils % 4.0 Basophils % 0.4 Nucleated Red Blood Cells % 0.0 Neutrophils # 2.1 Lymphocytes # 2.3 Monocytes # 0.4 Eosinophils # 0.2 Basophils # 0.0 Nucleated Red Blood Cells # 0.0 Sodium Level 135 Potassium Level 3.2 L Chloride Level 104 Carbon Dioxide Level 29 Anion Gap 5 #L Blood Urea Nitrogen 13 Creatinine 1.16 Glucose Level 151 Hemoglobin A1c 8.4 H Calcium Level 8.2 L Magnesium Level 2.1 Total Bilirubin 0.5 Direct Bilirubin 0.00 Indirect Bilirubin 0.5 Aspartate Amino Transf (AST/SGOT) 30 Alanine Aminotransferase (ALT/SGPT) 35 Alkaline Phosphatase 79 Total Protein 6.9 Albumin 3.4 Globulin 3.50 H Albumin/Globulin Ratio 0.97 Triglycerides Level 129 Cholesterol Level 122 LDL Cholesterol, Calculated 73 HDL Cholesterol 23 L Cholesterol/HDL Ratio 5.3 Amylase Level 42 Lipase 130 Medications Medications Current Medications Dextrose/Sodium Chloride (D5-1/2ns) 1,000 ml @ 60 mls/hr [id number] IV Last administered on 09/18/16 08:09; Admin Dose 60 MLS/HR; Start 09/17/16 at 06:47 Acetaminophen (Tylenol Tab) 650 mg Q6H PRN PO PAIN LEVEL 1-3 OR FEVER Last administered on 09/17/16 18:03; Admin Dose 650 MG; Start 09/17/16 at 07:00 Morphine Sulfate (morphine) 2 mg Q4H PRN IV PAIN LEVEL 7-10 Last administered on 09/17/16 21:50; Admin Dose 2 MG; Start 09/17/16 at 07:00 Aspirin (Halfprin) 81 mg DAILY PO Last administered on 09/18/16 09:08; Admin Dose 81 MG; Start 09/17/16 at 09:00 Atorvastatin Calcium (Lipitor) 10 mg QHS PO Last administered on 09/17/16 21: 37; Admin Dose 10 MG; Start 09/17/16 at 21:00 Carvedilol (Coreg) 12.5 mg BID PO Last administered on 09/18/16 09:08; Admin Dose 12.5 MG; Start 09/17/16 at 09:00 Duloxetine HCl (Cymbalta) 30 mg DAILY PO Last administered on 09/18/16 09:08; Admin Dose 30 MG; Start 09/17/16 at 09:00 Gabapentin (Neurontin) 100 mg TID PO Last administered on 09/18/16 09:08; Admin Dose 100 MG; Start 09/17/16 at 09:00 Insulin Glargine (Lantus) 8 unit QHS SC Last administered on 09/17/16 21:35; Admin Dose 8 UNIT; Start 09/17/16 at 21:00 Potassium Chloride (Klor-Con 20) 20 meq BID PO Last administered on 09/18/16 09:08; Admin Dose 20 MEQ; Start 09/17/16 at 09:00 Hydralazine HCl (Apresoline) 10 mg Q4H PRN IV SBP > 160 Last administered on 07:38; Admin Dose 10 MG; Start 09/17/16 at 07:00 Insulin Aspart (Novolog Insulin Pen) NOVOLOG *MODERATE* ALGORI... Q6 SC Last administered on 09/18/16 06:05; Admin Dose 2 UNIT; Start 09/17/16 at 08:00 Miscellaneous Information 1 ea NOTE XX ; Start 09/17/16 at 07:00 Glucose (Glutose) 15 gm Q15M PRN PO DECREASED GLUCOSE; Start 09/17/16 at 07:00 Glucose (Glutose) 22.5 gm Q15M PRN PO DECREASED GLUCOSE; Start 09/17/16 at 07: 00 Dextrose (D50w Syringe) 25 ml Q15M PRN IV DECREASED GLUCOSE; Start 09/17/16 at 07:00 Dextrose (D50w Syringe) 50 ml Q15M PRN IV DECREASED GLUCOSE; Start 09/17/16 at 07:00 Glucagon (Glucagen) 1 mg Q15M PRN IM DECREASED GLUCOSE; Start 09/17/16 at 07:00 Glucose (Glutose) 15 gm Q15M PRN BUCCAL DECREASED GLUCOSE; Start 09/17/16 at 07 :00 Pantoprazole 40 mg 40 mg BID@06,18 IV Last administered on 09/18/16t 06:02; Admin Dose 40 MG; Start 09/17/16 at 18:00 Potassium Chloride (KCl 40 MEQ/250 ML NS) 250 ml @ 62.5 mls/hr ONCE ONCE IVPB ; Start 09/18/16 at 10:30; Stop 09/18/16 at 14:29 SARAH MILLER MD Sep 18, 2016 09:34
[2016-09-18] MEDS ORDERED: POTASSIUM CHLORIDE 250 ML IVPB ONE (10:30)
[2016-09-18] MEDS: hydrALAzine 20 MG INJ IV PRN ×2 (11:20→20:24)
--- NOTE | 2016-09-18 14:26 | RADRPT ---
PROCEDURE: MRCP. CLINICAL INDICATION: Elevated liver function tests. TECHNIQUE: MRCP was performed. The following sequences were obtained: Three plane gradient echo localizers, coronal gradient echo images, breath hold axial T2-weighted fat saturation images, tatyana nal T2-weighted images, axial 3-D LAVA images, axial T2-weighted breath hold fast spin echo images, and 3-D coronal rotating MIP images of the biliary tree. COMPARISON: CT scan of the abdomen and pelvis dated 09/16/2016 and right upper quadrant abdomen ul trasound dated 09/16/2016. FINDINGS: The liver is normal in size. There is normal signal intensity within the liver. There is no focal hepatic lesion. The liver has a nodular surface consistent with cirrhosis. The spleen is mildly enlarged. There is no focal splenic lesion. Multiple varices are noted around the distal esophagus. There are no gallstones in the gallbladder. The bile ducts are mildly dilated. The common bile duct measures 0.9 cm in diameter. There is no co mmon bile duct filling defect to indicate calculus. The pancreatic duct is grossly normal. There are benign bilateral renal cysts. The abdominal aorta is not dilated IMPRESSION: 1. Nodular liver surface consistent with cirrhosis. 2. Splenomegaly. 3. Varices around the distal esophagus. 4. Dilated common bile duct measuring 0.9 cm in diameter. No evidence of gallstones or stones in th e common bile duct. 5. Benign bilateral renal cysts. RPTAT: QQ .Brandon Briceno MD, Date Time Electronically viewed and signed by .Brandon Briceno MD, on 09/18/2016 14:26 .R/
--- NOTE | 2016-09-18 15:04 | PN ---
Date/Time of Note Date/Time of Note DATE: 09/18/16 TIME: 14:57 Assessment/Plan VTE Prophylaxis VTE Prophylaxis Intervention: SCD's Lines/Catheters IV Catheter Type (from Nrs): Saline Lock Urinary Cath still in place: No Assessment/Plan Chief Complaint/Hosp Course Assessment/plan: 1. Abd pain. Patient with known history of cirrhosis and portal hypertension with splenomegally. GI conslted. Follow up recs. cont with analgesics.MRCP shwing dilated common delphine duct but no evidence of gallstones or stone in the bile duct. f/u GI 2. hypertensive urgency. cont on antihypertensives and adjust as needed. 3. hx gastric ulcer. cont on ppi medication 4. diabetes. cont on insulin regimen. will adjust as needed DISPO/PLAN: patient with dilated cbd with no stone seen. f/u GI recs. cont inpatient monitoring Discussed plan of care with Dr Story Problems: Subjective 24 Hr Interval Summary Free Text/Dictation reports abd pain right side of abd Exam/Review of Systems Vital Signs Vitals Vital Signs Date Time Temp Pulse Resp B/P Pulse Ox O2 Delivery O2 Flow Rate FiO2 09/18/16 12:08 64 09/18/16 11:49 98.2 19 193/94 96 09/17/16 05:29 Room Air Intake and Output 09/17/16 09/17/16 09/18/16 15:00 23:00 07:00 Intake Total 660 ml Balance 660 ml Exam Constitutional: alert, oriented Psych: nl mood/affect Head: normocephalic Eyes: nl conjunctiva Respiratory: clear to auscultation Gastrointestinal: soft, tender Musculoskeletal: nl extremities to inspection Extremities: normal pulses Results Result Diagram: 09/18/16 0620 09/18/16 0620 Results 24 hrs Laboratory Tests Test 09/17/16 15:30 09/17/16 17:31 09/17/16 21:33 09/18/16 02:23 Hepatitis B Surface Antigen NEGATIVE Hepatitis B Core Total Antibody NEGATIVE Hepatitis C Antibody NEGATIVE Bedside Glucose 219 235 H 162 Test 09/18/16 06:03 09/18/16 06:20 09/18/16 12:22 Bedside Glucose 148 170 White Blood Count 5.0 Red Blood Count 4.24 L Hemoglobin 11.8 L Hematocrit 35.8 L Mean Corpuscular Volume 84.4 Mean Corpuscular Hemoglobin 27.8 L Mean Corpuscular Hemoglobin Concent 33.0 Red Cell Distribution Width 14.1 Platelet Count 128 L Mean Platelet Volume 10.7 H Neutrophils % 41.8 Lymphocytes % 45.8 Monocytes % 7.6 Eosinophils % 4.0 Basophils % 0.4 Nucleated Red Blood Cells % 0.0 Neutrophils # 2.1 Lymphocytes # 2.3 Monocytes # 0.4 Eosinophils # 0.2 Basophils # 0.0 Nucleated Red Blood Cells # 0.0 Sodium Level 135 Potassium Level 3.2 L Chloride Level 104 Carbon Dioxide Level 29 Anion Gap 5 #L Blood Urea Nitrogen 13 Creatinine 1.16 Glucose Level 151 Hemoglobin A1c 8.4 H Calcium Level 8.2 L Magnesium Level 2.1 Total Bilirubin 0.5 Direct Bilirubin 0.00 Indirect Bilirubin 0.5 Aspartate Amino Transf (AST/SGOT) 30 Alanine Aminotransferase (ALT/SGPT) 35 Alkaline Phosphatase 79 Total Protein 6.9 Albumin 3.4 Globulin 3.50 H Albumin/Globulin Ratio 0.97 Triglycerides Level 129 Cholesterol Level 122 LDL Cholesterol, Calculated 73 HDL Cholesterol 23 L Cholesterol/HDL Ratio 5.3 Amylase Level 42 Lipase 130 Medications Medications Current Medications Dextrose/Sodium Chloride (D5-1/2ns) 1,000 ml @ 60 mls/hr [id number] IV Last administered on 09/18/16 08:09; Admin Dose 60 MLS/HR; Start 09/17/16 at 06:47 Acetaminophen (Tylenol Tab) 650 mg Q6H PRN PO PAIN LEVEL 1-3 OR FEVER Last administered on 09/17/16 18:03; Admin Dose 650 MG; Start 09/17/16 at 07:00 Morphine Sulfate (morphine) 2 mg Q4H PRN IV PAIN LEVEL 7-10 Last administered on 09/18/16 09:36; Admin Dose 2 MG; Start 09/17/16 at 07:00 Aspirin (Halfprin) 81 mg DAILY PO Last administered on 09/18/16 09:08; Admin Dose 81 MG; Start 09/17/16 at 09:00 Atorvastatin Calcium (Lipitor) 10 mg QHS PO Last administered on 09/17/16 21: 37; Admin Dose 10 MG; Start 09/17/16 at 21:00 Carvedilol (Coreg) 12.5 mg BID PO Last administered on 09/18/16 09:08; Admin Dose 12.5 MG; Start 09/17/16 at 09:00 Duloxetine HCl (Cymbalta) 30 mg DAILY PO Last administered on 09/18/16 09:08; Admin Dose 30 MG; Start 09/17/16 at 09:00 Gabapentin (Neurontin) 100 mg TID PO Last administered on 09/18/16 13:33; Admin Dose 100 MG; Start 09/17/16 at 09:00 Insulin Glargine (Lantus) 8 unit QHS SC Last administered on 09/17/16 21:35; Admin Dose 8 UNIT; Start 09/17/16 at 21:00 Potassium Chloride (Klor-Con 20) 20 meq BID PO Last administered on 09/18/16 09:08; Admin Dose 20 MEQ; Start 09/17/16 at 09:00 Hydralazine HCl (Apresoline) 10 mg Q4H PRN IV SBP > 160 Last administered on 11:20; Admin Dose 10 MG; Start 09/17/16 at 07:00 Insulin Aspart (Novolog Insulin Pen) NOVOLOG *MODERATE* ALGORI... Q6 SC Last administered on 09/18/16 12:39; Admin Dose 2 UNIT; Start 09/17/16 at 08:00 Miscellaneous Information 1 ea NOTE XX ; Start 09/17/16 at 07:00 Glucose (Glutose) 15 gm Q15M PRN PO DECREASED GLUCOSE; Start 09/17/16 at 07:00 Glucose (Glutose) 22.5 gm Q15M PRN PO DECREASED GLUCOSE; Start 09/17/16 at 07: 00 Dextrose (D50w Syringe) 25 ml Q15M PRN IV DECREASED GLUCOSE; Start 09/17/16 at 07:00 Dextrose (D50w Syringe) 50 ml Q15M PRN IV DECREASED GLUCOSE; Start 09/17/16 at 07:00 Glucagon (Glucagen) 1 mg Q15M PRN IM DECREASED GLUCOSE; Start 09/17/16 at 07:00 Glucose (Glutose) 15 gm Q15M PRN BUCCAL DECREASED GLUCOSE; Start 09/17/16 at 07 :00 Pantoprazole (Protonix Iv) 40 mg BID@,18 IV Last administered on 09/18/16 06 :02; Admin Dose 40 MG; Start 09/17/16 at 18:00 CONCEPCIÓN MONREAL Sep 18, 2016 15:04
[2016-09-18] MEDS ORDERED: hydrALAzine 20 MG INJ IV ONE (15:30)
[2016-09-18] MEDS: ATORVASTATIN 10 MG TAB PO SCH (20:23)
[2016-09-18] MEDS: INSULIN GLARGINE [LANtus] 3 ML PEN SC SCH (20:30)
[2016-09-19] VITALS (21 sets, daily range): BP systolic 133–178; BP diastolic 64–92; PULSE 60–86; RESP 14–20
[2016-09-19] MEDS: INSULIN ASPART [NOVOLOG] 3 ML PEN SC SCH ×4 (00:33→17:54)
[2016-09-19] MEDS: ACETAMINOPHEN 325 MG TAB PO PRN ×3 (00:34→22:00)
[2016-09-19] MEDS: DEXTROSE 5%-0.45% NACL 1,000 ML IV SCH ×3 (01:50→18:09)
[2016-09-19] MEDS: PANTOPRAZOLE 40 MG INJ IV SCH (05:42)
[2016-09-19 07:33] LABS: ADD SCAN DIFF NO
[2016-09-19 07:35] LABS: BASOPHILS % 0.4 % (0.0-2.0); EOSINOPHILS # 0.1 10^3/ul (0.0-0.5); EOSINOPHILS % 2.6 % (0.0-7.0); HEMOGLOBIN 12.3 g/dl (14.0-18.0); LYMPHOCYTES # 1.9 10^3/ul (0.8-2.9); LYMPHOCYTES % 38.9 % (15.0-51.0); MEAN CORPUSCULAR HEMOGLOBIN 28.1 pg (29.0-33.0); MEAN CORPUSCULAR HGB CONC 33.2 g/dl (32.0-37.0); MEAN CORPUSCULAR VOLUME 84.5 fl (82.0-101.0); MEAN PLATELET VOLUME 10.9 fl (7.4-10.4); MONOCYTE # 0.4 10^3/ul (0.3-0.9); MONOCYTES % 8.5 % (0.0-11.0); NEUTROPHIL # 2.5 10^3/ul (1.6-7.5); NEUTROPHILS % 49.4 % (39.0-77.0); PLATELET COUNT 144 10^3/UL (140-415); RED BLOOD COUNT 4.38 10^6/ul (4.70-6.10); RED CELL DISTRIBUTION WIDTH 13.8 % (11.5-14.5)
[2016-09-19 07:49] LABS: INR 1.22; PROTIME 15.5 Sec (12.2-14.2); PT RATIO 1.2
[2016-09-19 07:50] LABS: PARTIAL THROMBOPLASTIN TIME 34.3 Sec (25.0-35.0)
[2016-09-19 07:55] LABS: POTASSIUM 3.1 mmol/L (3.5-5.1)
[2016-09-19 07:58] LABS: CREATININE 1.12 mg/dl (0.61-1.24)
[2016-09-19 07:59] LABS: CALCIUM 8.6 mg/dl (8.4-10.2)
[2016-09-19] MEDS: GABAPENTIN 100 MG CAP PO SCH ×3 (08:38→22:00)
[2016-09-19] MEDS: DULOXETINE 30 MG CAP DR PO SCH (08:38)
[2016-09-19] MEDS: POTASSIUM CHLORIDE (SR) 20 MEQ TAB PO SCH ×2 (08:38→22:00)
[2016-09-19] MEDS: ASPIRIN (EC) 81 MG TAB PO SCH (08:38)
--- NOTE | 2016-09-19 11:35 | PN ---
Date/Time of Note Date/Time of Note DATE: 09/19/16 TIME: 11:33 Assessment/Plan VTE Prophylaxis VTE Prophylaxis Intervention: SCD's Lines/Catheters IV Catheter Type (from Nrs): Peripheral IV Urinary Cath still in place: No Assessment/Plan Chief Complaint/Hosp Course Assessment/plan: 1. Abd pain. Patient with known history of cirrhosis and portal hypertension with splenomegally. GI following. Follow up recs. cont with analgesics.MRCP showing dilated common delphine duct but no evidence of gallstones or stone in the bile duct. Tentative plan for EGD 2. hypertensive urgency. cont on antihypertensives and adjust as needed. Stable at present 3. hx gastric ulcer. cont on ppi medication 4. diabetes. cont on insulin regimen. will adjust as needed DISPO/PLAN: Continue with analgesics. Keep npo for now. Plan for EGD today. Discussed plan of care with Dr. Garcia Problems: Subjective 24 Hr Interval Summary Free Text/Dictation Still noted with moderate abdominal pain more notable on right abdominal chen. Tentative on palpation. No reported nausea vomiting at this time. Family at bedside Exam/Review of Systems Vital Signs Vitals Vital Signs Date Time Temp Pulse Resp B/P Pulse Ox O2 Delivery O2 Flow Rate FiO2 09/19/16 08:00 63 09/19/16 07:35 99.1 19 164/76 98 09/17/16 05:29 Room Air Intake and Output 09/18/16 09/18/16 09/19/16 14:59 22:59 06:59 Intake Total 400 ml Balance 400 ml Exam Constitutional: alert, oriented Psych: nl mood/affect Head: atraumatic, normocephalic Neck: non-tender, supple, No jvd Respiratory: clear to auscultation Cardiovascular: other (regular rate) Gastrointestinal: soft, tender Musculoskeletal: nl extremities to inspection Extremities: normal pulses Neurological: 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-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 intact, nl mental status, nl speech Skin: nl turgor Results Result Diagram: 09/19/1628 09/19/16627 Results 24 hrs Laboratory Tests Test 09/18/16 12:22 09/18/16 17:30 09/18/16 20:27 09/19/16 00:27 Bedside Glucose 170 173 163 165 Test 09/19/16 05:41 09/19/16 06:28 09/19/16 08:16 Bedside Glucose 140 166 White Blood Count 5.0 Red Blood Count 4.38 L Hemoglobin 12.3 L Hematocrit 37.0 L Mean Corpuscular Volume 84.5 Mean Corpuscular Hemoglobin 28.1 L Mean Corpuscular Hemoglobin Concent 33.2 Red Cell Distribution Width 13.8 Platelet Count 144 Mean Platelet Volume 10.9 H Neutrophils % 49.4 Lymphocytes % 38.9 Monocytes % 8.5 Eosinophils % 2.6 Basophils % 0.4 Nucleated Red Blood Cells % 0.0 Neutrophils # 2.5 Lymphocytes # 1.9 Monocytes # 0.4 Eosinophils # 0.1 Basophils # 0.0 Nucleated Red Blood Cells # 0.0 Prothrombin Time 15.5 H Prothrombin Time Ratio 1.2 INR International Normalized Ratio 1.22 Activated Partial Thromboplast Time 34.3 Sodium Level 142 Potassium Level 3.1 L Chloride Level 104 Carbon Dioxide Level 27 Anion Gap 14 # Blood Urea Nitrogen 13 Creatinine 1.12 Glucose Level 159 Calcium Level 8.6 Total Bilirubin 0.0 L Direct Bilirubin 0.00 Amylase Level 39 Lipase 120 Medications Medications Current Medications Dextrose/Sodium Chloride (D5-1/2ns) 1,000 ml @ 60 mls/hr [id number] IV Last administered on 09/19/16 08:39; Admin Dose 60 MLS/HR; Start 09/17/16 at 06:47 Acetaminophen (Tylenol Tab) 650 mg Q6H PRN PO PAIN LEVEL 1-3 OR FEVER Last administered on 09/19/16 00:34; Admin Dose 650 MG; Start 09/17/16 at 07:00 Morphine Sulfate (morphine) 2 mg Q4H PRN IV PAIN LEVEL 7-10 Last administered on 09/18/16 16:25; Admin Dose 2 MG; Start 09/17/16 at 07:00 Aspirin (Halfprin) 81 mg DAILY PO Last administered on 09/19/16 08:38; Admin Dose 81 MG; Start 09/17/16 at 09:00 Atorvastatin Calcium (Lipitor) 10 mg QHS PO Last administered on 09/18/16 20: 23; Admin Dose 10 MG; Start 09/17/16 at 21:00 Carvedilol (Coreg) 12.5 mg BID PO Last administered on 09/19/16 08:38; Admin Dose 12.5 MG; Start 09/17/16 at 09:00 Duloxetine HCl (Cymbalta) 30 mg DAILY PO Last administered on 09/19/16 08:38; Admin Dose 30 MG; Start 09/17/16 at 09:00 Gabapentin (Neurontin) 100 mg TID PO Last administered on 09/19/16 08:38; Admin Dose 100 MG; Start 09/17/16 at 09:00 Insulin Glargine (Lantus) 8 unit QHS SC Last administered on 09/18/16 20:30; Admin Dose 8 UNIT; Start 09/17/16 at 21:00 Potassium Chloride (Klor-Con 20) 20 meq BID PO Last administered on 09/19/16 08:38; Admin Dose 20 MEQ; Start 09/17/16 at 09:00 Hydralazine HCl (Apresoline) 10 mg Q4H PRN IV SBP > 160 Last administered on 20:24; Admin Dose 10 MG; Start 09/17/16 at 07:00 Insulin Aspart (Novolog Insulin Pen) NOVOLOG *MODERATE* ALGORI... Q6 SC Last administered on 09/19/16 00:33; Admin Dose 2 UNIT; Start 09/17/16 at 08:00 Miscellaneous Information 1 ea NOTE XX ; Start 09/17/16 at 07:00 Glucose (Glutose) 15 gm Q15M PRN PO DECREASED GLUCOSE; Start 09/17/16 at 07:00 Glucose (Glutose) 22.5 gm Q15M PRN PO DECREASED GLUCOSE; Start 09/17/16 at 07: 00 Dextrose (D50w Syringe) 25 ml Q15M PRN IV DECREASED GLUCOSE; Start 09/17/16 at 07:00 Dextrose (D50w Syringe) 50 ml Q15M PRN IV DECREASED GLUCOSE; Start 09/17/16 at 07:00 Glucagon (Glucagen) 1 mg Q15M PRN IM DECREASED GLUCOSE; Start 09/17/16 at 07:00 Glucose (Glutose) 15 gm Q15M PRN BUCCAL DECREASED GLUCOSE; Start 09/17/16 at 07 :00 Pantoprazole 40 mg 40 mg BID@06,18 IV Last administered on 09/19/16 05:42; Admin Dose 40 MG; Start 09/17/16 at 18:00 Potassium Chloride (KCl 40 MEQ/250 ML NS) 250 ml @ 62.5 mls/hr ONCE ONCE IVPB ; Start 09/19/16 at 12:00; Stop 09/19/16 at 15:59 CONCEPCIÓN MONREAL Sep 19, 2016 11:35
[2016-09-19] MEDS: hydrALAzine 20 MG INJ IV PRN (11:46)
[2016-09-19] MEDS ORDERED: POTASSIUM CHLORIDE 250 ML IVPB ONE (12:00)
[2016-09-19] MEDS ORDERED: PROPOFOL 20 ML ONE (16:56)
[2016-09-19] MEDS ORDERED: MIDAZOLAM 1 MG/ML 2 ML INJ ONE (16:57)
[2016-09-19] MEDS ORDERED: FENTAnyl 50 MCG/ML VIAL ONE (16:57)
[2016-09-19] MEDS ORDERED: LABETALOL HCL 20MG INJ IV PRN (17:30)
[2016-09-19] MEDS ORDERED: hydrALAzine 20 MG INJ IV PRN (17:30)
[2016-09-19] MEDS: PANTOPRAZOLE (EC) 40 MG TAB PO SCH (18:09)
[2016-09-19] MEDS: SUCRALFATE 1 GM TAB PO SCH (21:59)
[2016-09-19] MEDS: ATORVASTATIN 10 MG TAB PO SCH (22:00)
[2016-09-19] MEDS: INSULIN GLARGINE [LANtus] 3 ML PEN SC SCH (22:01)
[2016-09-20] VITALS (12 sets, daily range): BP systolic 150–186; BP diastolic 53–91; PULSE 60–72; RESP 18–20
[2016-09-20] MEDS: INSULIN ASPART [NOVOLOG] 3 ML PEN SC SCH ×5 (00:35→17:17)
--- NOTE | 2016-09-20 05:27 | GILP ---
DATE OF PROCEDURE: PROCEDURE: Esophagogastroduodenoscopy with biopsies. BRIEF HISTORY AND INDICATIONS: The patient with epigastric and right upper quadrant abdominal pain. PREMEDICATION: Monitored anesthesia care by anesthesiologist. SURGEON: Sarah Franks MD TECHNIQUE: After informed consent, with the patient/relatives understanding the procedure, its indic ations, potential risks and complications, including but not limited to: allergic reaction, bleeding , perforation or infection, and after all pertinent questions were answered to the patients satisfac tion, the patient/relatives signed witnessed informed consent. Following this, premedication was administered slowly IV push under careful cardiovascular and respi ratory monitoring with pulse oximetry, automatic blood pressure and supervisor cytology. Once the sedative effect was achieved the patient was place in the left lateral decubitus, the panen doscope was introduced and advanced under visual control. Careful examination of the upper gastrointestinal tract, both on insertion as well as withdrawal of the instrument disclosed the following findings: ESOPHAGUS: The distal esophagus shows grade I/IV esophageal varices with no stigmata of recent blee ding. There is erythema and edema as well as erosion of the mucosa in the distal esophagus. STOMACH: Upon entrance to the stomach, air was insufflated, the gastric marcus distended normally. T here is erythema, edema, and superficial erosion of the mucosa. Biopsies were obtained to rule out H. pylori infection. PYLORUS: Patent within normal limits. DUODENUM: The duodenal bulb is unremarkable. The second portion of the duodenum was briefly visual ized. No evidence of ampullary mass is present with this front viewing endoscope. The instrument was withdrawn, reexamining the mucosa in detail, and no additional abnormalities were noted. The patient tolerated the procedure well and was transfer out of the endoscopy suite awake, and in good condition to continue recovery under observation IMPRESSION: 1. Grade I/IV esophageal varices. 2. Erosive esophagitis. 3. Erosive gastritis. Rule out H. pylori infection. Biopsies were obtained. No ampullary lesion identified. PLAN: The patient will be treated with PPIs. Carafate will be added to the regimen. Pathology chica l be reviewed as soon as available. Further recommendation will depend on the patient's clinical co urse as well as review of biopsies. If pain persists, it may be appropriate to proceed with endosco pic ultrasonography as previously planned or repeat the ERCP prior to that to reconfirm the presence of a lesion in the minor papilla as described on previous years. Dictated By: SARAH FRANKS MS/LISANDRA Conf#: [id number] DID#: [id number]
[2016-09-20] MEDS: PANTOPRAZOLE (EC) 40 MG TAB PO SCH ×2 (05:59→17:12)
[2016-09-20] MEDS: hydrALAzine 20 MG INJ IV PRN ×4 (06:02→23:50)
[2016-09-20 06:58] LABS: ADD SCAN DIFF NO
[2016-09-20 07:08] LABS: BASOPHILS % 0.6 % (0.0-2.0); EOSINOPHILS # 0.2 10^3/ul (0.0-0.5); HEMATOCRIT 35.4 % (42.0-52.0); HEMOGLOBIN 11.9 g/dl (14.0-18.0); LYMPHOCYTES # 2.4 10^3/ul (0.8-2.9); LYMPHOCYTES % 46.7 % (15.0-51.0); MEAN CORPUSCULAR HEMOGLOBIN 28.6 pg (29.0-33.0); MEAN CORPUSCULAR HGB CONC 33.6 g/dl (32.0-37.0); MEAN CORPUSCULAR VOLUME 85.1 fl (82.0-101.0); MEAN PLATELET VOLUME 10.9 fl (7.4-10.4); MONOCYTE # 0.5 10^3/ul (0.3-0.9); MONOCYTES % 9.1 % (0.0-11.0); NEUTROPHILS % 40.2 % (39.0-77.0); PLATELET COUNT 136 10^3/UL (140-415); RED BLOOD COUNT 4.16 10^6/ul (4.70-6.10); RED CELL DISTRIBUTION WIDTH 13.9 % (11.5-14.5); WHITE BLOOD COUNT 5.1 10^3/ul (4.8-10.8)
[2016-09-20 07:20] LABS: CALCIUM 8.6 mg/dl (8.4-10.2); CREATININE 1.24 mg/dl (0.61-1.24); POTASSIUM 3.5 mmol/L (3.5-5.1)
[2016-09-20] MEDS: ASPIRIN (EC) 81 MG TAB PO SCH (09:06)
[2016-09-20] MEDS: DULOXETINE 30 MG CAP DR PO SCH (09:06)
[2016-09-20] MEDS: GABAPENTIN 100 MG CAP PO SCH ×3 (09:06→21:26)
[2016-09-20] MEDS: POTASSIUM CHLORIDE (SR) 20 MEQ TAB PO SCH ×2 (09:06→21:27)
[2016-09-20] MEDS: SUCRALFATE 1 GM TAB PO SCH ×4 (09:06→21:26)
[2016-09-20] MEDS: ACETAMINOPHEN 325 MG TAB PO PRN ×2 (09:07→21:50)
[2016-09-20] MEDS: morphine 2 MG INJ IV PRN (12:29)
--- NOTE | 2016-09-20 13:59 | PN ---
Date/Time of Note Date/Time of Note DATE: 09/20/16 TIME: 13:53 Assessment/Plan VTE Prophylaxis VTE Prophylaxis Intervention: SCD's Lines/Catheters IV C[facility]ter Type (from [facility]): Saline Lock Urinary Cath still in place: No Assessment/Plan Assessment/Plan Abdominal pain * EGD 09/19/2016 * 1. Grade I/IV esophageal varices. 2. Erosive esophagitis. 3. Erosive gastritis. Rule out H. pylori infection. Biopsies were obtained. No ampullary lesion identified. MRC09/18/2016 * 1. Nodular liver surface consistent with cirrhosis. * 2. Splenomegaly. * 3. Varices around the distal esophagus. * 4. Dilated common bile duct measuring 0.9 cm in diameter. No evidence of gallstones or stones in the common bile duct. * 5. Benign bilateral renal cysts. * CT abdomen /pelvis 09/17/2015 * 1. Mild cardiomegaly and atherosclerotic vascular disease 2. Cirrhosis and portal hypertension with splenomegaly and varices as noted above. 3. No evidence for ascites or pneumoperitoneum 4. Stable right adrenal adenoma 1.6 cm AP by 2 cm in transverse dimensions. 5. Stable left upper pole renal cortical cysts 6. Surgical anastomoses at the anorectal junction, mild prostatic enlargement and penile implants. * Diabetes mellitus * Hypokalemia corrected * Hypertension * Plan * continue present management Subjective 24 Hr Interval Summary Free Text/Dictation * Course reviewed with RN * patient seen and examined * still with epigastric pain mild * 09/19/2016 EGD * 1. Grade I/IV esophageal varices. 2. Erosive esophagitis. 3. Erosive gastritis. Rule out H. pylori infection. Biopsies were obtained. No ampullary lesion identified. Exam/Review of Systems Vital Signs Vitals Vital Signs Date Time Temp Pulse Resp B/P Pulse Ox O2 Delivery O2 Flow Rate FiO2 09/20/16 12:00 67 09/20/16 11:58 98.9 18 186/90 97 09/19/16 17:34 Room Air Intake and Output 09/19/16 09/19/16 09/20/16 15:00 23:00 07:00 Intake Total 1100 ml 200 ml Balance 1100 ml 200 ml Exam Constitutional: alert Neck: supple Respiratory: clear to auscultation, normal air movement Cardiovascular: nl pulses, regular rate and rhythm Gastrointestinal: bowel sounds, distended, nl liver, spleen, soft, tender ( epigastric area), No rebound or guarding Musculoskeletal: nl extremities to inspection Results Result Diagram: 09/20/16 0557 09/20/16 0600 Results 24 hrs Laboratory Tests Test 09/19/16 17:51 09/19/16 21:54 09/20/16 00:30 09/20/16 05:56 Bedside Glucose 113 257 H 223 H 134 Test 09/20/16 05:57 09/20/16 06:00 09/20/16 11:27 White Blood Count 5.1 Red Blood Count 4.16 L Hemoglobin 11.9 L Hematocrit 35.4 L Mean Corpuscular Volume 85.1 Mean Corpuscular Hemoglobin 28.6 L Mean Corpuscular Hemoglobin Concent 33.6 Red Cell Distribution Width 13.9 Platelet Count 136 L Mean Platelet Volume 10.9 H Neutrophils % 40.2 Lymphocytes % 46.7 Monocytes % 9.1 Eosinophils % 3.0 Basophils % 0.6 Nucleated Red Blood Cells % 0.0 Neutrophils # 2.0 Lymphocytes # 2.4 Monocytes # 0.5 Eosinophils # 0.2 Basophils # 0.0 Nucleated Red Blood Cells # 0.0 Total Bilirubin 0.0 L Direct Bilirubin 0.00 Amylase Level 60 Lipase 182 Sodium Level 138 Potassium Level 3.5 Chloride Level 105 Carbon Dioxide Level 27 Anion Gap 10 Blood Urea Nitrogen 15 Creatinine 1.24 Glucose Level 136 Calcium Level 8.6 Bedside Glucose 275 H Medications Medications Current Medications Acetaminophen (Tylenol Tab) 650 mg Q6H PRN PO PAIN LEVEL 1-3 OR FEVER Last administered on 09/20/16 09:07; Admin Dose 650 MG; Start 09/17/16 at 07:00 Morphine Sulfate (morphine) 2 mg Q4H PRN IV PAIN LEVEL 7-10 Last administered on 09/20/16 12:29; Admin Dose 2 MG; Start 09/17/16 at 07:00 Aspirin (Halfprin) 81 mg DAILY PO Last administered on 09/20/16 09:06; Admin Dose 81 MG; Start 09/17/16 at 09:00 Atorvastatin Calcium (Lipitor) 10 mg QHS PO Last administered on 09/19/16 22: 00; Admin Dose 10 MG; Start 09/17/16 at 21:00 Carvedilol (Coreg) 12.5 mg BID PO Last administered on 09/20/16 09:07; Admin Dose 12.5 MG; Start 09/17/16 at 09:00 Duloxetine HCl (Cymbalta) 30 mg DAILY PO Last administered on 09/20/16 09:06; Admin Dose 30 MG; Start 09/17/16 at 09:00 Gabapentin (Neurontin) 100 mg TID PO Last administered on 09/20/16 12:28; Admin Dose 100 MG; Start 09/17/16 at 09:00 Insulin Glargine (Lantus) 8 unit QHS SC Last administered on 09/19/16 22:01; Admin Dose 8 UNIT; Start 09/17/16 at 21:00 Potassium Chloride (Klor-Con 20) 20 meq BID PO Last administered on 09/20/16 09:06; Admin Dose 20 MEQ; Start 09/17/16 at 09:00 Hydralazine HCl (Apresoline) 10 mg Q4H PRN IV SBP > 160 Last administered on 12:29; Admin Dose 10 MG; Start 09/17/16 at 07:00 Insulin Aspart (Novolog Insulin Pen) NOVOLOG *MODERATE* ALGORI... Q6 SC Last administered on 09/20/16 12:32; Admin Dose 8 UNIT; Start 09/17/16 at 08:00 Miscellaneous Information 1 ea NOTE XX ; Start 09/17/16 at 07:00 Glucose (Glutose) 15 gm Q15M PRN PO DECREASED GLUCOSE; Start 09/17/16 at 07:00 Glucose (Glutose) 22.5 gm Q15M PRN PO DECREASED GLUCOSE; Start 09/17/16 at 07: 00 Dextrose (D50w Syringe) 25 ml Q15M PRN IV DECREASED GLUCOSE; Start 09/17/16 at 07:00 Dextrose (D50w Syringe) 50 ml Q15M PRN IV DECREASED GLUCOSE; Start 09/17/16 at 07:00 Glucagon (Glucagen) 1 mg Q15M PRN IM DECREASED GLUCOSE; Start 09/17/16 at 07:00 Glucose (Glutose) 15 gm Q15M PRN BUCCAL DECREASED GLUCOSE; Start 09/17/16 at 07 :00 Pantoprazole (Protonix Tab) 40 mg BID@ PO Last administered on 09/20/16 05:59; Admin Dose 40 MG; Start 09/19/16 at 18:00 Sucralfate (Carafate) 1 gm QID PO Last administered on 09/20/16t 12:29; Admin Dose 1 GM; Start 09/19/16 at 21:00 SARAH MILLER MD Sep 20, 2016 13:59 SARAH MILLER MD Sep 20, 2016 13:59
--- NOTE | 2016-09-20 16:25 | PN ---
Date/Time of Note Date/Time of Note DATE: 09/20/16 TIME: 16:21 Assessment/Plan VTE Prophylaxis VTE Prophylaxis Intervention: SCD's Lines/Catheters IV Catheter Type (from Nrsg): Saline Lock Urinary Cath still in place: No Assessment/Plan Assessment/Plan 1. Abd pain. EGD 09/19/2016, on protonix and carafate 2. hypertension, not controlled, add lisinopril 3. diabetes. not controlled, add pre-meal insulin Subjective 24 Hr Interval Summary Free Text/Dictation still has abdominal pain and headache Exam/Review of Systems Vital Signs Vitals Vital Signs Date Time Temp Pulse Resp B/P Pulse Ox O2 Delivery O2 Flow Rate FiO2 09/20/16 16:00 98.3 69 19 184/53 97 09/19/16 17:34 Room Air Intake and Output 09/19/16 09/19/16 09/20/16 15:00 23:00 07:00 Intake Total 1100 ml 200 ml Balance 1100 ml 200 ml Exam Constitutional: alert, oriented, well developed Psych: nl mood/affect, no complaints Head: atraumatic, normocephalic Eyes: EOMI, PERRL, nl conjunctiva, nl lids ENMT: nl external ears & nose, nl lips & teeth, nl nasal mucosa & septum Neck: non-tender, supple Respiratory: clear to auscultation, normal air movement, No congested cough, No crackles/rales, No diminished breath sounds, No intercostal retraction, No labored breathing, No other, No respirations, No tactile fremitus, No wheezing Cardiovascular: nl pulses, regular rate and rhythm, No S3, No S4, No bruits, No diastolic murmur, No edema, No gallop, No irregular rhythm, No jugular venous distention (JVD), No murmurs/extra sounds, No other, No rub, No systolic murmur Gastrointestinal: nl liver, spleen, soft, tender Musculoskeletal: nl extremities to inspection Extremities: normal pulses, No calf tenderness, No clubbing, No cyanosis, No edema, No other, No palpable cord, No pitting pedal edema, No tenderness 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, nl mental status, nl speech, nl strength Skin: nl turgor Results Result Diagram: 09/20/16 0557 09/20/16 0600 Results 24 hrs Laboratory Tests Test 09/19/16 17:51 09/19/16 21:54 09/20/16 00:30 09/20/16 05:56 Bedside Glucose 113 257 H 223 H 134 Test 09/20/16 05:57 09/20/16 06:00 09/20/16 11:27 White Blood Count 5.1 Red Blood Count 4.16 L Hemoglobin 11.9 L Hematocrit 35.4 L Mean Corpuscular Volume 85.1 Mean Corpuscular Hemoglobin 28.6 L Mean Corpuscular Hemoglobin Concent 33.6 Red Cell Distribution Width 13.9 Platelet Count 136 L Mean Platelet Volume 10.9 H Neutrophils % 40.2 Lymphocytes % 46.7 Monocytes % 9.1 Eosinophils % 3.0 Basophils % 0.6 Nucleated Red Blood Cells % 0.0 Neutrophils # 2.0 Lymphocytes # 2.4 Monocytes # 0.5 Eosinophils # 0.2 Basophils # 0.0 Nucleated Red Blood Cells # 0.0 Total Bilirubin 0.0 L Direct Bilirubin 0.00 Amylase Level 60 Lipase 182 Sodium Level 138 Potassium Level 3.5 Chloride Level 105 Carbon Dioxide Level 27 Anion Gap 10 Blood Urea Nitrogen 15 Creatinine 1.24 Glucose Level 136 Calcium Level 8.6 Bedside Glucose 275 H Medications Medications Current Medications Acetaminophen (Tylenol Tab) 650 mg Q6H PRN PO PAIN LEVEL 1-3 OR FEVER Last administered on 09/20/16 09:07; Admin Dose 650 MG; Start 09/17/16 at 07:00 Morphine Sulfate (morphine) 2 mg Q4H PRN IV PAIN LEVEL 7-10 Last administered on 09/20/16 12:29; Admin Dose 2 MG; Start 09/17/16 at 07:00 Aspirin (Halfprin) 81 mg DAILY PO Last administered on 09/20/16 09:06; Admin Dose 81 MG; Start 09/17/16 at 09:00 Atorvastatin Calcium (Lipitor) 10 mg QHS PO Last administered on 09/19/16 22: 00; Admin Dose 10 MG; Start 09/17/16 at 21:00 Carvedilol (Coreg) 12.5 mg BID PO Last administered on 09/20/16 09:07; Admin Dose 12.5 MG; Start 09/17/16 at 09:00 Duloxetine HCl (Cymbalta) 30 mg DAILY PO Last administered on 09/20/16 09:06; Admin Dose 30 MG; Start 09/17/16 at 09:00 Gabapentin (Neurontin) 100 mg TID PO Last administered on 09/20/16 12:28; Admin Dose 100 MG; Start 09/17/16 at 09:00 Insulin Glargine (Lantus) 8 unit QHS SC Last administered on 09/19/16 22:01; Admin Dose 8 UNIT; Start 09/17/16 at 21:00 Potassium Chloride (Klor-Con 20) 20 meq BID PO Last administered on 09/20/16 09:06; Admin Dose 20 MEQ; Start 09/17/16 at 09:00 Hydralazine HCl (Apresoline) 10 mg Q4H PRN IV SBP > 160 Last administered on 12:29; Admin Dose 10 MG; Start 09/17/16 at 07:00 Insulin Aspart (Novolog Insulin Pen) NOVOLOG *MODERATE* ALGORI... Q6 SC Last administered on 09/20/16 12:32; Admin Dose 8 UNIT; Start 09/17/16 at 08:00 Miscellaneous Information 1 ea NOTE XX ; Start 09/17/16 at 07:00 Glucose (Glutose) 15 gm Q15M PRN PO DECREASED GLUCOSE; Start 09/17/16 at 07:00 Glucose (Glutose) 22.5 gm Q15M PRN PO DECREASED GLUCOSE; Start 09/17/16 at 07: 00 Dextrose (D50w Syringe) 25 ml Q15M PRN IV DECREASED GLUCOSE; Start 09/17/16 at 07:00 Dextrose (D50w Syringe) 50 ml Q15M PRN IV DECREASED GLUCOSE; Start 09/17/16 at 07:00 Glucagon (Glucagen) 1 mg Q15M PRN IM DECREASED GLUCOSE; Start 09/17/16 at 07:00 Glucose (Glutose) 15 gm Q15M PRN BUCCAL DECREASED GLUCOSE; Start 09/17/16 at 07 :00 Pantoprazole (Protonix Tab) 40 mg BID@18 PO Last administered on 09/20/16 05:59; Admin Dose 40 MG; Start 09/19/16 at 18:00 Sucralfate (Carafate) 1 gm QID PO Last administered on 09/20/16 12:29; Admin Dose 1 GM; Start 09/19/16 at 21:00 VAN ALEJANDRA MD Sep 20, 2016 16:25
[2016-09-20] MEDS: LISINOPRIL 20 MG TAB PO SCH (17:13)
[2016-09-20] MEDS: ATORVASTATIN 10 MG TAB PO SCH (21:26)
[2016-09-20] MEDS: INSULIN GLARGINE [LANtus] 3 ML PEN SC SCH (21:31)
[2016-09-21] VITALS (7 sets, daily range): BP systolic 107–177; BP diastolic 55–89; PULSE 63–73; RESP 16–18
[2016-09-21] MEDS: INSULIN ASPART [NOVOLOG] 3 ML PEN SC SCH ×5 (00:03→12:43)
[2016-09-21] MEDS: PANTOPRAZOLE (EC) 40 MG TAB PO SCH (06:24)
[2016-09-21 08:07] LABS: ADD SCAN DIFF NO
[2016-09-21 08:11] LABS: BASOPHILS % 0.4 % (0.0-2.0); EOSINOPHILS # 0.2 10^3/ul (0.0-0.5); EOSINOPHILS % 2.9 % (0.0-7.0); HEMATOCRIT 34.8 % (42.0-52.0); HEMOGLOBIN 11.8 g/dl (14.0-18.0); LYMPHOCYTES # 2.7 10^3/ul (0.8-2.9); LYMPHOCYTES % 47.9 % (15.0-51.0); MEAN CORPUSCULAR HEMOGLOBIN 28.6 pg (29.0-33.0); MEAN CORPUSCULAR HGB CONC 33.9 g/dl (32.0-37.0); MEAN CORPUSCULAR VOLUME 84.3 fl (82.0-101.0); MEAN PLATELET VOLUME 10.7 fl (7.4-10.4); MONOCYTE # 0.4 10^3/ul (0.3-0.9); MONOCYTES % 7.7 % (0.0-11.0); NEUTROPHIL # 2.3 10^3/ul (1.6-7.5); NEUTROPHILS % 40.7 % (39.0-77.0); PLATELET COUNT 137 10^3/UL (140-415); RED BLOOD COUNT 4.13 10^6/ul (4.70-6.10); WHITE BLOOD COUNT 5.6 10^3/ul (4.8-10.8)
[2016-09-21 08:43] LABS: CALCIUM 8.8 mg/dl (8.4-10.2); CREATININE 1.42 mg/dl (0.61-1.24); POTASSIUM 3.4 mmol/L (3.5-5.1)
[2016-09-21] MEDS: GABAPENTIN 100 MG CAP PO SCH (08:43)
[2016-09-21] MEDS: DULOXETINE 30 MG CAP DR PO SCH (08:43)
[2016-09-21] MEDS: POTASSIUM CHLORIDE (SR) 20 MEQ TAB PO SCH (08:44)
[2016-09-21] MEDS: LISINOPRIL 20 MG TAB PO SCH (08:44)
[2016-09-21] MEDS: ASPIRIN (EC) 81 MG TAB PO SCH (08:44)
[2016-09-21] MEDS: SUCRALFATE 1 GM TAB PO SCH (08:44)
[2016-09-21] MEDS ORDERED: PANT40TA4 PO (12:26)
[2016-09-21] MEDS ORDERED: LISI20TA11 PO (12:26)
[2016-09-21] MEDS ORDERED: SUCR1TAB27 PO (12:26)
[2016-09-21] MEDS ORDERED: POTASSIUM CHLORIDE (SR) 20 MEQ TAB PO STA (13:01)
--- NOTE | 2016-09-21 13:06 | DS ---
Date/Time of Note Date/Time of Note DATE: 09/21/16 TIME: 12:58 Discharge Summary Admission/Discharge Info Admit Date/Time Sep 17, 2016 at 01:56 Discharge Date/Time Final Diagnosis 1. Erosive gastritis and esophagitis, on protonix and carafate, follow up with Dr. Franks for biopsy result 2. hypertension, added lisinopril 3. diabetes mellitus, stable, on insulin 4. Chronic liver disease with liver cirrhosis, follow up with GI 5. Dyslipidemia, on lipitor 6. CAD, stable Patient Condition: Stable Procedures G.I. LAB PROCEDURE DATE OF PROCEDURE: PROCEDURE: Esophagogastroduodenoscopy with biopsies. BRIEF HISTORY AND INDICATIONS: The patient with epigastric and right upper quadrant abdominal pain. PREMEDICATION: Monitored anesthesia care by anesthesiologist. SURGEON: Sarah Franks MD TECHNIQUE: After informed consent, with the patient/relatives understanding the procedure, its indications, potential risks and complications, including but not limited to: allergic reaction, bleeding, perforation or infection, and after all pertinent questions were answered to the patients satisfaction, the patient/relatives signed witnessed informed consent. Following this, premedication was administered slowly IV push under careful cardiovascular and respiratory monitoring with pulse oximetry, automatic blood pressure and machine adjuster leader case trim. Once the sedative effect was achieved the patient was place in the left lateral decubitus, the panendoscope was introduced and advanced under visual control. Careful examination of the upper gastrointestinal tract, both on insertion as well as withdrawal of the instrument disclosed the following findings: ESOPHAGUS: The distal esophagus shows grade I/IV esophageal varices with no stigmata of recent bleeding. There is erythema and edema as well as erosion of the mucosa in the distal esophagus. STOMACH: Upon entrance to the stomach, air was insufflated, the gastric marcus distended normally. There is erythema, edema, and superficial erosion of the mucosa. Biopsies were obtained to rule out H. pylori infection. PYLORUS: Patent within normal limits. DUODENUM: The duodenal bulb is unremarkable. The second portion of the duodenum was briefly visualized. No evidence of ampullary mass is present with this front viewing endoscope. The instrument was withdrawn, reexamining the mucosa in detail, and no additional abnormalities were noted. The patient tolerated the procedure well and was transfer out of the endoscopy suite awake, and in good condition to continue recovery under observation IMPRESSION: 1. Grade I/IV esophageal varices. 2. Erosive esophagitis. 3. Erosive gastritis. Rule out H. pylori infection. Biopsies were obtained. No ampullary lesion identified. PLAN: The patient will be treated with PPIs. Carafate will be added to the regimen. Pathology will be reviewed as soon as available. Further recommendation will depend on the patient's clinical course as well as review of biopsies. If pain persists, it may be appropriate to proceed with endoscopic ultrasonography as previously planned or repeat the ERCP prior to that to reconfirm the presence of a lesion in the minor papilla as described on previous years. Dictated By: SARAH FRANKS MS/NTS Conf#: [id number] DID#: [id number] Hx of Present Illness This 66-year-old male with hx of HTN, DM, CAD, DL, Cirrhosis who presented to the emergency room for evaluation of abdominal pain, nausea, vomiting and dizziness. According to this patient's patient has had mainly RUQ pain for last 8 months now. His vomiting is intermittent with emesis described as "small water". He has been feeling dizzy/lightheaded for last one week. He is a pt of Dr. Anaya and said he was seen in clinic 2 days ago and was given pain meds for his abd pain. He was admitted here in February of last year for abd pain. At that time, Abd MRI showed cirrhosis and EGD showed gastritis and superficial ulcers In ER this time, he had CT abd/pelvis and RUQ u/s with finding of cirrhosis with portal HTN and varices. Also noted on CT scan is Surgical anastomoses at the anorectal junction, mild prostatic enlargement and penile implants. Initial BP was 207/102. Labs showed K+ of 2.6 and glu of 268. . Hospital Course EGD on 09/19/2016 revealed erosive gastritis and esophagitis. Patient is put on double protonix plus carafate. Symptom improved. He will follow up with Dr. Franks for biopsy result. Home Meds Active Scripts Lisinopril* (Lisinopril*) 20 Mg Tablet, 40 MG PO DAILY for 30 Days, TAB Prov:VAN ALEJANDRA MD 09/21/16 Pantoprazole* (Pantoprazole*) 40 Mg Tablet., 40 MG PO BID@06,18 for 30 Days Prov:VAN ALEJANDRA MD 09/21/16 Sucralfate (Carafate) 1 Gm Tablet, 1 GM PO QID for 30 Days, TAB Prov:VAN ALEJANDRA MD 09/21/16 Reported Medications Gabapentin* (Gabapentin*) 100 Mg Capsule, 100 MG PO TID, #90 CAP 09/16/16 Atorvastatin Calcium (Atorvastatin Calcium) 10 Mg Tablet, 10 MG PO QHS, #30 TAB 09/16/16 Duloxetine Hcl* (Duloxetine Hcl*) 30 Mg Capsule.dr, 30 MG PO DAILY, #30 CAP 09/16/16 Hydralazine Hcl* (Hydralazine Hcl*) 50 Mg Tab, 50 MG PO Q6H Y for ELEVATED BLOOD PRESSURE, #60 TAB 09/16/16 Sitagliptin Phos/Metformin HCl (Janumet 50-1,000 mg Tablet) 1 Each Tablet, 2 EACH PO DAILY, TAB 09/16/16 Insulin Glargine* (Lantus*) 100 Unit/Ml Soln, 8 UNIT SC QHS, #1 VIAL 09/16/16 Potassium Chloride* (K-Dur*) 20 Meq Tab.prt.sr, 20 MEQ PO BID, TAB.SA 09/16/16 Carvedilol* (Carvedilol*) 12.5 Mg Tablet, 12.5 MG PO BID, #60 TAB 09/16/16 Aspirin* (Aspirin* EC) 81 Mg Tablet.dr, 81 MG PO DAILY, TAB 03/18/15 Discontinued Reported Medications Esomeprazole Mag Trihydrate (Nexium) 40 Mg Capsule.dr, 40 MG PO DAILY, CAP 03/18/15 Sitagliptin Phos/Metformin HCl (Janumet 50-1,000 mg Tablet) 1 Each Tablet, 1 EACH PO DAILY, TAB 02/21/16 Nitroglycerin (Nitrostat) 0.4 Mg Subl, 0.4 MG SL Q5MIN Y for CHEST PAIN, BOTTLE 02/21/16 Hydrocortisone (PROCTOSOL-HC) 28.35 Gm Cream..g., 28.35 GM RC BID 02/21/16 Alprazolam (Xanax) 0.25 Mg Tab, 0.5 MG PO DAILY, TAB 02/21/16 Potassium Chloride (Klor-Con) 10 Meq Tablet.sa, 20 MEQ PO BID, TAB.SA 02/21/16 Cyanocobalamin (Vitamin B12) 100 Mcg Tab, 100 MCG PO DAILY, TAB 02/21/16 Nifedipine (Nifedical Xl) 30 Mg Tab.er.24, 30 MG PO DAILY, TAB 02/21/16 Furosemide (Lasix) 40 Mg Tab, 40 MG PO DAILY, TAB 02/21/16 Carvedilol* (Carvedilol*) 25 Mg Tablet, 25 MG PO BID, #60 TAB 02/21/16 Insulin Human Regular (Novolin-R U-100) 100 Unit/Ml Soln, 8 UNITS SC AC DINNER, EA 02/21/16 Insulin Human Regular (Novolin-R U-100) 100 Unit/Ml Soln, 8 UNITS SC AC BREAKFAST, EA 02/21/16 Cyanocobalamin* (Vitamin B12*) 100 Mcg Tab, 100 MCG PO DAILY, TAB 02/21/16 Nitroglycerin* (Nitrostat*) 0.4 Mg Tab.subl, 0.4 MG SL Q5MIN Y for CHEST PAIN, BOTTLE 03/18/15 Docusate Sodium* (Colace*) 100 Mg Capsule, 100 MG PO Q24H, CAP 03/18/15 Propranolol Hcl* (Propranolol Hcl*) 40 Mg Tablet, 40 MG PO BID, TAB 03/18/15 Ferrous Sulfate* (Ferrous Sulfate*) 325 Mg Tabec, 325 MG PO DAILY, TAB 03/18/15 Tamsulosin Hcl* (Flomax*) 0.4 Mg Cap.er.24h, 0.4 MG PO HS, CAP 03/18/15 Discontinued Scripts Hydrocodone/Acetaminophen ([place] 10-325 Tablet) 1 Each Tablet, 1 TAB PO Q6H Y for PAIN, #20 TAB Prov:JEFFERY VICTORIA 02/01/16 Follow-up Plan Dr. Franks in one week PCP in one week Pending Labs Laboratory Tests Test 09/20/16 17:10 09/20/16 21:29 09/20/16 23:59 09/21/16 06:22 Bedside Glucose 241mg/dL (70-220) 141mg/dL (70-220) 151mg/dL (70-220) 126mg/dL (70-220) Test 09/21/16 07:19 09/21/16 07:39 09/21/16 08:48 09/21/16 12:40 White Blood Count 5.610^3/ul (4.8-10.8) Red Blood Count 4.1310^6/ul (4.70-6.10) Hemoglobin 11.8g/dl (14.0-18.0) Hematocrit 34.8% (42.0-52.0) Mean Corpuscular Volume 84.3fl (82.0-101.0) Mean Corpuscular Hemoglobin 28.6pg (29.0-33.0) Mean Corpuscular Hemoglobin Concent 33.9g/dl (32.0-37.0) Red Cell Distribution Width 14.0% (11.5-14.5) Platelet Count 08777^3/UL (140-415) Mean Platelet Volume 10.7fl (7.4-10.4) Neutrophils % 40.7% (39.0-77.0) Lymphocytes % 47.9% (15.0-51.0) Monocytes % 7.7% (0.0-11.0) Eosinophils % 2.9% (0.0-7.0) Basophils % 0.4% (0.0-2.0) Nucleated Red Blood Cells % 0.0/100WBC (0.0-0.0) Neutrophils # 2.310^3/ul (1.6-7.5) Lymphocytes # 2.710^3/ul (0.8-2.9) Monocytes # 0.410^3/ul (0.3-0.9) Eosinophils # 0.210^3/ul (0.0-0.5) Basophils # 0.010^3/ul (0.0-0.1) Nucleated Red Blood Cells # 0.010^3/ul (0.0-0.0) Sodium Level 136mmol/L (135-144) Potassium Level 3.4mmol/L (3.5-5.1) Chloride Level 103mmol/L (97-110) Carbon Dioxide Level 26mmol/L (21-31) Anion Gap 10 (8-16) Blood Urea Nitrogen 19mg/dl (7-20) Creatinine 1.42mg/dl (0.61-1.24) Glucose Level 139mg/dl (70-220) Calcium Level 8.8mg/dl (8.4-10.2) Bedside Glucose 138mg/dL (70-220) 149mg/dL (70-220) 264mg/dL (70-220) VAN ALEJANDRA MD Sep 21, 2016 13:06
--- NOTE | 2016-09-21 13:36 | PN ---
Date/Time of Note Date/Time of Note DATE: 09/21/16 TIME: 13:31 Assessment/Plan VTE Prophylaxis VTE Prophylaxis Intervention: SCD's Lines/Catheters IV [facility] Urinary Cath still in place: No Assessment/Plan Assessment/Plan Abdominal pain resolved * EGD 09/19/2016 * 1. Grade I/IV esophageal varices. 2. Erosive esophagitis. 3. Erosive gastritis. Rule out H. pylori infection. Biopsies were obtained. No ampullary lesion identified. MRC09/18/2016 * 1. Nodular liver surface consistent with cirrhosis. * 2. Splenomegaly. * 3. Varices around the distal esophagus. * 4. Dilated common bile duct measuring 0.9 cm in diameter. No evidence of gallstones or stones in the common bile duct. * 5. Benign bilateral renal cysts. * CT abdomen /pelvis 09/17/2015 * 1. Mild cardiomegaly and atherosclerotic vascular disease 2. Cirrhosis and portal hypertension with splenomegaly and varices as noted above. 3. No evidence for ascites or pneumoperitoneum 4. Stable right adrenal adenoma 1.6 cm AP by 2 cm in transverse dimensions. 5. Stable left upper pole renal cortical cysts 6. Surgical anastomoses at the anorectal junction, mild prostatic enlargement and penile implants. * Diabetes mellitus * Hypokalemia corrected * Hypertension * Plan * stable for outpatient management * follow up after 8 weeks Subjective 24 Hr Interval Summary Free Text/Dictation * Course reviewed with RN * patient seen and examined * improved abdominal pain * awaiting biopsy result * EGD 09/19 * 1. Grade I/IV esophageal varices. 2. Erosive esophagitis. 3. Erosive gastritis. Rule out H. pylori infection. Biopsies were obtained. No ampullary lesion identified. Exam/Review of Systems Vital Signs Vitals Vital Signs Date Time Temp Pulse Resp B/P Pulse Ox O2 Delivery O2 Flow Rate FiO2 09/21/16 12:00 65 09/21/16 09:14 98.6 16 177/89 94 Room Air Intake and Output 09/20/16 09/20/16 09/21/16 15:00 23:00 07:00 Intake Total 900 ml 800 ml Balance 900 ml 800 ml Exam Constitutional: alert, oriented Psych: no complaints Head: normocephalic Neck: non-tender, supple Respiratory: clear to auscultation, normal air movement Cardiovascular: nl pulses, regular rate and rhythm Gastrointestinal: nl liver, spleen, non-tender, soft Musculoskeletal: nl extremities to inspection Extremities: normal pulses Neurological: nl mental status Results Result Diagram: 09/21/1671809/21/16718 Results 24 hrs Laboratory Tests Test 09/20/16 17:10 09/20/16 21:29 09/20/16 23:59 09/21/16 06:22 Bedside Glucose 241 H 141 151 126 Test 09/21/16 07:19 09/21/16 07:39 09/21/16 08:48 09/21/16 12:40 White Blood Count 5.6 Red Blood Count 4.13 L Hemoglobin 11.8 L Hematocrit 34.8 L Mean Corpuscular Volume 84.3 Mean Corpuscular Hemoglobin 28.6 L Mean Corpuscular Hemoglobin Concent 33.9 Red Cell Distribution Width 14.0 Platelet Count 137 L Mean Platelet Volume 10.7 H Neutrophils % 40.7 Lymphocytes % 47.9 Monocytes % 7.7 Eosinophils % 2.9 Basophils % 0.4 Nucleated Red Blood Cells % 0.0 Neutrophils # 2.3 Lymphocytes # 2.7 Monocytes # 0.4 Eosinophils # 0.2 Basophils # 0.0 Nucleated Red Blood Cells # 0.0 Sodium Level 136 Potassium Level 3.4 L Chloride Level 103 Carbon Dioxide Level 26 Anion Gap 10 Blood Urea Nitrogen 19 Creatinine 1.42 H Glucose Level 139 Calcium Level 8.8 Bedside Glucose 138 149 264 H Medications Medications Current Medications Acetaminophen (Tylenol Tab) 650 mg Q6H PRN PO PAIN LEVEL 1-3 OR FEVER Last administered on 09/20/16 21:50; Admin Dose 650 MG; Start 09/17/16 at 07:00 Morphine Sulfate (morphine) 2 mg Q4H PRN IV PAIN LEVEL 7-10 Last administered on 09/20/16 12:29; Admin Dose 2 MG; Start 09/17/16 at 07:00 Aspirin (Halfprin) 81 mg DAILY PO Last administered on 09/21/16 08:44; Admin Dose 81 MG; Start 09/17/16 at 09:00 Atorvastatin Calcium (Lipitor) 10 mg QHS PO Last administered on 09/20/16 21: 26; Admin Dose 10 MG; Start 09/17/16 at 21:00 Carvedilol (Coreg) 12.5 mg BID PO Last administered on 09/21/16 08:44; Admin Dose 12.5 MG; Start 09/17/16 at 09:00 Duloxetine HCl (Cymbalta) 30 mg DAILY PO Last administered on 09/21/16 08:43; Admin Dose 30 MG; Start 09/17/16 at 09:00 Gabapentin (Neurontin) 100 mg TID PO Last administered on 09/21/16 08:43; Admin Dose 100 MG; Start 09/17/16 at 09:00 Insulin Glargine (Lantus) 8 unit QHS SC Last administered on 09/20/16 21:31; Admin Dose 8 UNIT; Start 09/17/16 at 21:00 Potassium Chloride (Klor-Con 20) 20 meq BID PO Last administered on 09/21/16 08:44; Admin Dose 20 MEQ; Start 09/17/16 at 09:00 Hydralazine HCl (Apresoline) 10 mg Q4H PRN IV SBP > 160 Last administered on 23:50; Admin Dose 10 MG; Start 09/17/16 at 07:00 Insulin Aspart (Novolog Insulin Pen) NOVOLOG *MODERATE* ALGORI... Q6 SC Last administered on 09/21/16 12:42; Admin Dose 8 UNIT; Start 09/17/16 at 08:00 Miscellaneous Information 1 ea NOTE XX ; Start 09/17/16 at 07:00 Glucose (Glutose) 15 gm Q15M PRN PO DECREASED GLUCOSE; Start 09/17/16 at 07:00 Glucose (Glutose) 22.5 gm Q15M PRN PO DECREASED GLUCOSE; Start 09/17/16 at 07: 00 Dextrose (D50w Syringe) 25 ml Q15M PRN IV DECREASED GLUCOSE; Start 09/17/16 at 07:00 Dextrose (D50w Syringe) 50 ml Q15M PRN IV DECREASED GLUCOSE; Start 09/17/16 at 07:00 Glucagon (Glucagen) 1 mg Q15M PRN IM DECREASED GLUCOSE; Start 09/17/16 at 07:00 Glucose (Glutose) 15 gm Q15M PRN BUCCAL DECREASED GLUCOSE; Start 09/17/16 at 07 :00 Pantoprazole (Protonix Tab) 40 mg BID@18 PO Last administered on 09/21/16 06:24; Admin Dose 40 MG; Start 09/19/16 at 18:00 Sucralfate (Carafate) 1 gm QID PO Last administered on 09/21/16 08:44; Admin Dose 1 GM; Start 09/19/16 at 21:00 Lisinopril (Zestril) 40 mg DAILY PO Last administered on 09/21/16 08:44; Admin Dose 40 MG; Start 09/20/16 at 16:30 SARAH MILLER MD Sep 21, 2016 13:36
== END 2016-09-21 13:32 | disposition home or self-care (01) | DRG 433 ==
LOC: E/R 18:11 → MS4 09-17 01:56
PROVIDERS: ADMIT Internal Medicine; ATTEND Internal Medicine
PROC: 0DB68ZX Excision of Stomach, Via Natural or Artificial Opening Endoscopic, Diagnostic (ICD-10-PCS; principal; 2016-09-19 17:30)
DX: K70.30 Alcoholic cirrhosis of liver without ascites (principal); K76.6 Portal hypertension; I85.10 Secondary esophageal varices without bleeding; K25.9 Gastric ulcer, unspecified as acute or chronic, without hemorrhage or perforation; K29.60 Other gastritis without bleeding; I16.0 Hypertensive urgency; E87.6 Hypokalemia; E11.9 Type 2 diabetes mellitus without complications; I25.10 Atherosclerotic heart disease of native coronary artery without angina pectoris; R16.1 Splenomegaly, not elsewhere classified
CPT/HCPCS: 36415; 74176; 74181; 76705; 80048; 80053; 80061; 81001; 81003; 82150; 82247; 82248; 82962; 83036; 83690; 83735; 84484; 85025; 85610; 85730; 86704; 86709; 86803; 87340; 88305; 93005; 96374; 96375; C9113; J0360; J1815; J2250; J2270; J2405; J3010; J3475; J3480; J7030; J7042